=== PATIENT | female | born 1960 | race Caucasian/White ===

== ENCOUNTER 2023-05-14 13:44 | Emergency (ER) | payer MEDICAID, SELFPAY ==
[2023-05-14 13:51] VITALS: BP 100/63; PULSE 85; RESP 20; TEMP 36.6; O2SAT 94; BMI 49.9
--- NOTE | 2023-05-14 13:58 | XR_ITS ---
The [address] [address] Patient Name: RANGEL SANTAMARIA MRN: [id number] date: 1960 Sex: F Assigned Patient Location: ER Current Patient Location: ER Accession/Order Number: [id number] Exam Date: 05/14/2023 14:00 Report Date: 05/14/2023 14:11 At the request of: MARK WELLER Procedure: XR chest 1V EXAM: XR chest 1V HISTORY: Cough COMPARISON: None. TECHNIQUE: AP portable FINDINGS: LUNGS: No significant pulmonary parenchymal abnormalities. VASCULATURE: No increased pulmonary vasculature. PLEURA: No pneumothorax, effusion, or pleural thickening. CARDIAC: No cardiomegaly or cardiac silhouette abnormality. MEDIASTINUM: No visible mass or adenopathy. BONES: No fracture or visible bone lesion. OTHER: Negative. XR/XR chest 1V IMPRESSION: No acute cardiopulmonary process Electronically authenticated by: SHMUEL AC Date: 05/14/2023 14:11
--- NOTE | 2023-05-14 14:00 | ED.WEAKNESS1 ---
HPI - Weakness General Chief complaint: Weakness Stated complaint: general weakness Time Seen by Provider: 05/14/23 13:45 Source: patient Mode of arrival: ambulance Limitations: no limitations History of Present Illness HPI Narrative: Patient is a 63-year-old female full code from [place] who presents to the emergency department by ambulance after she was found to be drowsy with low pulse oximetry and had episodes of diarrhea. Patient states she did not want to come to the emergency department and was forced to do so, she states because she was a full code she was told she could not refuse. She is alert and oriented to person, place, time at time of my evaluation. She denies chest pain or shortness of breath. She is a half a pack per day cigarette smoker. She is drowsy but answers all questions appropriately. She has no significant focal medical complaints at my time of evaluation. She has a longstanding history of COPD and states she uses breathing treatments and albuterol inhalers. Related Data Home Medications Medication Instructions Recorded Confirmed albuterol sulfate 2.5 mg/3 mL 2.5 mg continuous nebulization Q4H 05/14/23 05/14/23 (0.083 %) solution for nebulization PRN shortness of breath or wheezing albuterol sulfate 90 mcg/actuation 2 puff inhalation Q6H PRN 05/14/23 05/14/23 aerosol inhaler shortness of breath or wheezing aripiprazole 5 mg tablet 5 mg PO DAILY 05/14/23 05/14/23 atorvastatin 40 mg tablet 40 mg PO DAILY 05/14/23 05/14/23 clonidine HCl 0.1 mg tablet 0.1 mg PO BID 05/14/23 05/14/23 clopidogrel 75 mg tablet 75 mg PO DAILY 05/14/23 05/14/23 cyclobenzaprine 10 mg tablet 10 mg PO TID 05/14/23 05/14/23 Previous Rx's Medication Instructions Recorded azithromycin 250 mg tablet See Rx Instructions PO .COMPLEX #6 05/14/23 (Zithromax Z-Gideon) tabs methylprednisolone 4 mg tablets in See Rx Instructions .Route 05/14/23 a dose pack (Medrol (Gideon)) .COMPLEX #21 ea Allergies Allergy/AdvReac Type Severity Reaction Status Date / Time aspirin Allergy Severe Unverified 05/14/23 13:51 dextrose Allergy Unknown Verified 05/14/23 13:51 Penicillins Allergy Unknown Verified 05/14/23 13:51 iv contrast Allergy Unknown Uncoded 05/14/23 13:51 Review of Systems ROS Constitutional Denies: fever or chills Ears, nose, mouth, and throat Denies: throat pain or nasal congestion Cardiovascular Denies: chest pain Respiratory Reports: cough and wheezing; Denies: shortness of breath Gastrointestinal Reports: diarrhea; Denies: nausea or vomiting Genitourinary Denies: painful urination Musculoskeletal Denies: back pain or neck pain Integumentary/Breast Denies: rash Neurological Reports: headache PFSH PFS Social History Smoking status: Heavy tobacco smoker Exam Narrative Exam Narrative: Gen.: Awake, alert, in no distress Head: Normocephalic, atraumatic ENT: Moist mucous membranes Respiratory: No respiratory distress, Inspiratory and expiratory wheezing globally Cardio: Regular rate and rhythm Gastrointestinal: Abdomen is soft, nondistended and nontender to palpation Extremities: Moves extremities equally Psych: Normal mood and affect Neuro: No focal neuro deficit Skin: Warm, dry, intact Constitutional Vital Signs, click to edit/add: Last Vital Signs Temp 97.8 F 05/14/23 13:51 Pulse 84 05/14/23 16:13 Resp 24 05/14/23 15:23 BP 106/63 05/14/23 16:13 Pulse Ox 93 L 05/14/23 16:13 O2 Del Method Room Air 05/14/23 15:23 Course Vital Signs Vital signs: Vital Signs Temperature 97.8 F 05/14/23 13:51 Pulse Rate 85 05/14/23 13:51 Respiratory Rate 20 05/14/23 13:51 Blood Pressure 100/63 05/14/23 13:51 Pulse Oximetry 94 L 05/14/23 13:51 Oxygen Delivery Method Room Air 05/14/23 13:51 Temperature 97.8 F 05/14/23 13:51 Pulse Rate 84 05/14/23 16:13 Respiratory Rate 24 05/14/23 15:23 Blood Pressure 106/63 05/14/23 16:13 Pulse Oximetry 93 L 05/14/23 16:13 Oxygen Delivery Method Room Air 05/14/23 15:23 MDM - Weakness MDM Narrative Medical decision making narrative: Patient adamantly refuses IV start, EKG or extensive workup. She is agreeable to blood work and a chest x-ray as well as breathing treatments. I made her aware that with limited evaluation and no IV placement, we could not rule out certain medical conditions that may be giving her hypoxia like pulmonary embolism, severe sepsis. She verbalizes understanding. She states she did not want to come to the emergency department and does not want to be here. She will allow us to draw labs and get a chest x-ray. Chest x-ray is unremarkable, lab studies with no significant acute abnormalities. Patient did maintain oxygen saturation above 92% in the ER, she was given breathing treatments with improvement. She was reevaluated by attending physician, she continues to refuse additional evaluation for PE, sepsis, IV start. She is alert and oriented x 3. She appears to have a COPD exacerbation at this time. She will be started on a Z-Gideon and prednisone. She has albuterol breathing treatments and inhalers at her facility. The nurse who called report stated that the patient was recently given an order for oxygen by nasal cannula. Return to the ER if symptoms change or worsen Medical Records Attestation: I reviewed the patient's medical records. Lab Data Attestation: I reviewed the patient's lab results. Labs: Lab Results 05/14/23 Range/Units 14:14 WBC 7.8 (4.0-11.0) 10^3/uL RBC 4.44 (4.20-5.40) 10^6/uL Hgb 13.2 (12.0-16.0) g/dL Hct 41.1 (36.0-48.0) % MCV 92.6 (81.0-99.0) fL MCH 29.7 (26.7-34.0) pg MCHC 32.1 (29.9-35.2) g/dL RDW 14.9 (11.0-15.0) % Plt Count 224 (150-450) 10^3/uL MPV 9.9 (9.5-13.5) fL Neut % (Auto) 47.9 (43.0-75.0) % Lymph % (Auto) 37.6 (20.5-60.0) % [place] % (Auto) 9.5 (1.7-12.0) % Eos % (Auto) 1.4 (0.9-7.0) % Baso % (Auto) 0.9 (0.2-2.0) % Neut # (Auto) 3.8 (1.4-6.5) 10^3/uL Lymph # (Auto) 2.9 (1.2-3.8) 10^3/uL [place] # (Auto) 0.7 (0.3-0.8) 10^3/uL Eos # (Auto) 0.1 (0.0-0.7) 10^3/uL Baso # (Auto) 0.1 (0.0-0.1) 10^3/uL Abs Immat Gran (auto) 0.21 H (0.00-0.03) 10^3/uL Imm/Tot Granulo (auto) 2.7 H (0.0-0.5) % PT 11.1 (9.0-11.6) sec INR 1.05 VBG pH 7.457 H (7.330-7.430) VBG pCO2 42.9 (40.0-52.0) mmHg Sodium 137 (136-145) mmol/L Potassium 3.6 (3.5-5.1) mmol/L Chloride 98 (98-107) mmol/L Carbon Dioxide 34.0 H (21.0-32.0) mmol/L Anion Gap 8.6 BUN 55.0 H (7.0-18.0) mg/dL Creatinine 1.53 H (0.55-1.02) mg/dL Est GFR ( Amer) 42 L (>=60) Est GFR (Non-Af Amer) 34 L (>=60) BUN/Creatinine Ratio 35.9 Glucose 155 H (74-106) mg/dL Lactate 1.8 (0.4-2.0) mmol/L Calcium 9.0 (8.5-10.1) mg/dL Magnesium 1.8 (1.8-2.4) mg/dL Total Bilirubin 0.2 (0.2-1.0) mg/dL AST 11 L (15-37) U/L ALT 16 (14-59) U/L Alkaline Phosphatase 103 (46-116) U/L Troponin I High Sens 7.5 (4.0-51.3) pg/mL NT-Pro-B Natriuret Pep 278.0 (<=900.0) pg/mL Total Protein 7.7 (6.4-8.2) g/dL Albumin 2.5 L (3.4-5.0) g/dL Globulin 5.2 g/dL Albumin/Globulin Ratio 0.5 Imaging Data Chest x-ray: Attestation: I have reviewed the pertinent imaging results. Radiologist's impression: ITS Impressions Chest X-Ray 05/14/23 13:58 IMPRESSION: No acute cardiopulmonary process Electronically authenticated by: SHMUEL AC Date: 05/14/2023 14:11 Discharge Plan Discharge Chief Complaint: Weakness Clinical Impression: COPD exacerbation Patient Disposition: Home, Self-Care Time of Disposition Decision: 16:08 Condition: Good Prescriptions / Home Meds: New azithromycin [Zithromax Z-Gideon] 250 mg tablet See Rx Instructions .ROUTE .COMPLEX Qty: 6 0RF Rx Instructions: For 250 mg dose pack: take 500 mg today (day 1), then 250 mg for 4 days (days 2-5) methylprednisolone [Medrol (Gideon)] 4 mg tablets,dose pack See Rx Instructions .ROUTE .COMPLEX Qty: 21 0RF Rx Instructions: Taper as directed No Action albuterol sulfate 90 mcg/actuation HFA aerosol inhaler 2 puff INHALATION Q6H PRN (Reason: shortness of breath or wheezing) albuterol sulfate 2.5 mg /3 mL (0.083 %) solution for nebulization 2.5 mg continuous nebulization Q4H PRN (Reason: shortness of breath or wheezing) aripiprazole 5 mg tablet 5 mg PO DAILY atorvastatin 40 mg tablet 40 mg PO DAILY clonidine HCl 0.1 mg tablet 0.1 mg PO BID clopidogrel 75 mg tablet 75 mg PO DAILY cyclobenzaprine 10 mg tablet 10 mg PO TID Instructions: COPD (Chronic Obstructive Pulmonary Disease) (ED) Stand Alone Forms: Portal Instructions Referrals: [facility] [Primary Care Provider] - 1 week
[2023-05-14 14:24] LABS: pH VBG 7.457 (7.330-7.430)
[2023-05-14 14:25] LABS: PCO2 VBG 42.9 mmHg (40.0-52.0)
[2023-05-14 14:26] LABS: Basophils Absolute Auto 0.1 10^3/uL (0.0-0.1); Basophils Percent Auto 0.9 % (0.2-2.0); Eosinophils Absolute Auto 0.1 10^3/uL (0.0-0.7); Eosinophils Percent Auto 1.4 % (0.9-7.0); Hematocrit 41.1 % (36.0-48.0); Hemoglobin 13.2 g/dL (12.0-16.0); Immature Granulocytes Abs Auto 0.21 10^3/uL (0.00-0.03); Immature Granulocytes Pct Auto 2.7 % (0.0-0.5); Lymphocytes Absolute Auto 2.9 10^3/uL (1.2-3.8); Lymphocytes Percent Auto 37.6 % (20.5-60.0); Mean Corpuscular HGB Conc 32.1 g/dL (29.9-35.2); Mean Corpuscular Hemoglobin 29.7 pg (26.7-34.0); Mean Corpuscular Volume 92.6 fL (81.0-99.0); Mean Platelet Volume 9.9 fL (9.5-13.5); Monocytes Absolute Auto 0.7 10^3/uL (0.3-0.8); Monocytes Percent Auto 9.5 % (1.7-12.0); Neutrophils Absolute Auto 3.8 10^3/uL (1.4-6.5); Neutrophils Percent Auto 47.9 % (43.0-75.0); Platelet Count 224 10^3/uL (150-450); Red Blood Count 4.44 10^6/uL (4.20-5.40); Red Cell Distribution Width 14.9 % (11.0-15.0); White Blood Count 7.8 10^3/uL (4.0-11.0)
[2023-05-14 14:38] LABS: INR 1.05; Prothrombin Time 11.1 sec (9.0-11.6)
[2023-05-14 14:42] LABS: Lactate/Lactic Acid 1.8 mmol/L (0.4-2.0)
[2023-05-14 14:49] LABS: Alanine Aminotransferase 16 U/L (14-59); Albumin Globulin Ratio 0.5; Albumin Level 2.5 g/dL (3.4-5.0); Alkaline Phosphatase 103 U/L (46-116); Anion Gap 8.6; Aspartate Amino Transferase 11 U/L (15-37); BUN Creatinine Ratio 35.9; Bilirubin Total 0.2 mg/dL (0.2-1.0); Chloride 98 mmol/L (98-107); Estimated GFR (African America 42 (>=60); Estimated GFR (Non-African Ame 34 (>=60); Globulin 5.2 g/dL; Glucose 155 mg/dL (74-106); Magnesium 1.8 mg/dL (1.8-2.4); Potassium 3.6 mmol/L (3.5-5.1); Sodium 137 mmol/L (136-145); Total Protein 7.7 g/dL (6.4-8.2); Troponin I High Sensitivity 7.5 pg/mL (4.0-51.3)
[2023-05-14] MEDS: ALBUTEROL SULFATE 2.5 MG/3 ML VIAL NEB IH (15:22)
[2023-05-14] MEDS: IPRATROPIUM/ALBUTEROL SULFATE 3 ML AMPUL.NEB IH (15:22)
[2023-05-14 15:23] VITALS: BP 112/58; PULSE 82; PULSE 90; RESP 24; O2SAT 92
[2023-05-14 16:13] VITALS: BP 106/63; PULSE 84; O2SAT 93
[2023-05-14 16:58] VITALS: O2SAT 92
[2023-05-14 17:09] VITALS: BP 118/68; PULSE 85; O2SAT 93
[2023-05-14 17:35] VITALS: O2SAT 92
== END 2023-05-14 17:48 | disposition home or self-care (01) ==
PROVIDERS: Physician Assistant; Emergency Provider Emergency Medicine
DX: J44.1 Chronic obstructive pulmonary disease with (acute) exacerbation (principal); F17.210 Nicotine dependence, cigarettes, uncomplicated; Z79.899 Other long term (current) drug therapy
CPT/HCPCS: 0202U; 36415; 71045; 80053; 80307; 82800; 82805; 83605; 83735; 83880; 84484; 85025; 85610; 87040; 94640; 99284

== ENCOUNTER 2023-06-09 17:04 | Inpatient (IN) | payer MEDICAID, SELFPAY ==
[2023-06-09 17:03] VITALS: BP 115/64; PULSE 83; RESP 18; TEMP 36.9; O2SAT 100; BMI 47.0
--- NOTE | 2023-06-09 17:21 | XR_ITS ---
The [address] [address] Patient Name: RANGEL SANTAMARIA MRN: [id number] date: 1960 Sex: F Assigned Patient Location: ER Current Patient Location: .[facility] Accession/Order Number: [id number] Exam Date: 06/09/2023 17:35 Report Date: 06/09/2023 18:11 At the request of: MARK WELLER Procedure: XR foot RT min 3V IMAGES REVIEWED: XR foot RT min 3V COMPARISON: None available. CLINICAL INDICATION: osteomyelitis FINDINGS/IMPRESSION: Fifth toe soft tissue ulcer and soft tissue swelling suggesting cellulitis. No definite radiographic evidence of osteomyelitis or acute osseous abnormality at this time. MRI would be more sensitive. 15 mm metallic retained foreign body in the forefoot soft tissues projecting between the second and third proximal phalanges on the first view. Prominent ankle and dorsal foot soft tissue swelling. Peripheral arterial disease. Status post prior fusion of the medial foot with a screw extending from the first metatarsal head through the first CMC joint, navicular-cuneiform joint, talonavicular joint, possibly to correct hindfoot valgus. Slight focal periprosthetic lucency in the region of the first metatarsal head articular surface, questionably suggesting loosening. Status post prior subtalar fusion. Moderate calcaneal enthesopathy. Pes planus. Moderate-severe degenerative change of the tibiotalar joint and midfoot. Mild-moderate degenerative change first MTP joint. Osteopenia. Electronically authenticated by: MAGNO FERNANDEZ Date: 06/09/2023 18:11
--- NOTE | 2023-06-09 17:21 | ED.GENADUL1 ---
HPI - General Adult General Chief complaint: Skin/Abscess/Foreign Body Stated complaint: WOUND CHECK Time Seen by Provider: 06/09/23 17:10 Source: patient Mode of arrival: ambulance Limitations: no limitations History of Present Illness HPI narrative: Is a 63-year-old female who presents to the emergency department for the evaluation of necrotic right fifth toe. She has a history of diabetes. She states that she had previous surgery with hardware placed in the right foot years ago. She has had no other additional surgeries on the foot. She is morbidly obese, she states for the last month she has had necrotic tissue and infection to the right fifth toe. Apparently a movement education specialist evaluated [facility] and it was recommended she come to the ER. She denies fevers, vomiting. No medications prior to arrival. She was on Antibiotics several weeks ago for an unrelated issue. Related Data Home Medications Medication Instructions Recorded Confirmed albuterol sulfate 2.5 mg/3 mL 2.5 mg continuous nebulization Q4H 05/14/23 05/14/23 (0.083 %) solution for nebulization PRN shortness of breath or wheezing albuterol sulfate 90 mcg/actuation 2 puff inhalation Q6H PRN 05/14/23 05/14/23 aerosol inhaler shortness of breath or wheezing aripiprazole 5 mg tablet 10 mg PO DAILY 05/14/23 06/09/23 atorvastatin 40 mg tablet 40 mg PO DAILY 05/14/23 05/14/23 clonidine HCl 0.1 mg tablet 0.1 mg PO BID 05/14/23 05/14/23 clopidogrel 75 mg tablet 75 mg PO DAILY 05/14/23 05/14/23 cyclobenzaprine 10 mg tablet 10 mg PO TID 05/14/23 05/14/23 Previous Rx's Medication Instructions Recorded azithromycin 250 mg tablet See Rx Instructions PO .COMPLEX #6 05/14/23 (Zithromax Z-Gideon) tabs methylprednisolone 4 mg tablets in See Rx Instructions .Route 05/14/23 a dose pack (Medrol (Gideon)) .COMPLEX #21 ea Allergies Allergy/AdvReac Type Severity Reaction Status Date / Time aspirin Allergy Severe Verified 06/09/23 17:53 dextrose Allergy Unknown Verified 06/09/23 17:53 Penicillins Allergy Unknown Verified 06/09/23 17:53 iv contrast Allergy Unknown Uncoded 06/09/23 17:53 Review of Systems ROS Constitutional Denies: fever or chills Ears, nose, mouth, and throat Denies: throat pain Cardiovascular Denies: chest pain Respiratory Denies: shortness of breath or cough Gastrointestinal Denies: nausea or vomiting Musculoskeletal Denies: back pain or neck pain Integumentary/Breast Denies: rash Neurological Denies: headache Hematologic/Lymphatic Denies: easy bruising or easy bleeding PFSH PFSH Social History Smoking status: Former smoker Exam Narrative Exam Narrative: Gen.: Awake, alert, in no distress; Morbidly obese female in no distress Head: Normocephalic, atraumatic ENT: Moist mucous membranes Respiratory: No respiratory distress, lungs clear bilaterally Cardio: Regular rate and rhythm Extremities: Moves extremities equally, Right fifth toe with diffuse necrosis, inflammation and open exposed areas of the skin, diffusely swollen with no significant cellulitis extending to the foot. Psych: Normal mood and affect Neuro: No focal neuro deficit Skin: Warm, dry, intact Constitutional Vital Signs, click to edit/add: Last Vital Signs Temp 98.5 F 06/09/23 17:03 Pulse 83 06/09/23 17:03 Resp 18 06/09/23 17:03 BP 115/64 06/09/23 17:03 Pulse Ox 100 06/09/23 17:03 O2 Del Method Room Air 06/09/23 17:03 Course Vital Signs Vital signs: Vital Signs Temperature 98.5 F 06/09/23 17:03 Pulse Rate 83 06/09/23 17:03 Respiratory Rate 18 06/09/23 17:03 Blood Pressure 115/64 06/09/23 17:03 Pulse Oximetry 100 06/09/23 17:03 Oxygen Delivery Method Room Air 06/09/23 17:03 Temperature 98.5 F 06/09/23 17:03 Pulse Rate 83 06/09/23 17:03 Respiratory Rate 18 06/09/23 17:03 Blood Pressure 115/64 06/09/23 17:03 Pulse Oximetry 100 06/09/23 17:03 Oxygen Delivery Method Room Air 06/09/23 17:03 Medical Decision Making MDM Narrative Medical decision making narrative: X-rays obtained, IV established and labs drawn with elevated CRP, sed rate. White blood cell count, lactic acid are normal. Patient treated with IV Levaquin and vancomycin due to penicillin allergy. Discussed with Dr. Gregorio, he will see the patient as a consult. She will be admitted to hospitalist service with podiatry consult for probable debridement of the right fifth toe. Medical Records Medical records reviewed: Yes I reviewed the patient's medical records Lab Data Lab results reviewed: Yes I reviewed the patient's lab results Labs: Lab Results 06/09/23 Range/Units 17:20 WBC 8.3 (4.0-11.0) 10^3/uL RBC 3.80 L (4.20-5.40) 10^6/uL Hgb 11.4 L (12.0-16.0) g/dL Hct 35.9 L (36.0-48.0) % MCV 94.5 (81.0-99.0) fL MCH 30.0 (26.7-34.0) pg MCHC 31.8 (29.9-35.2) g/dL RDW 15.2 H (11.0-15.0) % Plt Count 228 (150-450) 10^3/uL MPV 9.9 (9.5-13.5) fL Neut % (Auto) 49.0 (43.0-75.0) % Lymph % (Auto) 35.5 (20.5-60.0) % Glenn % (Auto) 7.0 (1.7-12.0) % Eos % (Auto) 3.6 (0.9-7.0) % Baso % (Auto) 0.7 (0.2-2.0) % Neut # (Auto) 4.1 (1.4-6.5) 10^3/uL Lymph # (Auto) 2.9 (1.2-3.8) 10^3/uL Glenn # (Auto) 0.6 (0.3-0.8) 10^3/uL Eos # (Auto) 0.3 (0.0-0.7) 10^3/uL Baso # (Auto) 0.1 (0.0-0.1) 10^3/uL Abs Immat Gran (auto) 0.35 H (0.00-0.03) 10^3/uL Imm/Tot Granulo (auto) 4.2 H (0.0-0.5) % ESR 106 H (<=30) mm/hr Sodium 140 (136-145) mmol/L Potassium 3.7 (3.5-5.1) mmol/L Chloride 103 (98-107) mmol/L Carbon Dioxide 32.3 H (21.0-32.0) mmol/L Anion Gap 8.4 BUN 51.0 H (7.0-18.0) mg/dL Creatinine 1.17 H (0.55-1.02) mg/dL Est GFR ( Amer) 57 L (>=60) Est GFR (Non-Af Amer) 47 L (>=60) BUN/Creatinine Ratio 43.6 Glucose 179 H (74-106) mg/dL Lactate 1.1 (0.4-2.0) mmol/L Calcium 8.8 (8.5-10.1) mg/dL Total Bilirubin 0.2 (0.2-1.0) mg/dL AST 11 L (15-37) U/L ALT 13 L (14-59) U/L Alkaline Phosphatase 82 (46-116) U/L C-Reactive Protein 2.00 H (<=0.50) mg/dL Total Protein 7.3 (6.4-8.2) g/dL Albumin 2.3 L (3.4-5.0) g/dL Globulin 5.0 g/dL Albumin/Globulin Ratio 0.5 Imaging Data XR foot: Attestation: I have reviewed the pertinent imaging results. Discharge Plan Discharge Chief Complaint: Skin/Abscess/Foreign Body Clinical Impression: Toe necrosis Time of Disposition Decision: 17:56
--- OUTSIDE RECORDS SUMMARY | 2023-06-09 17:21 | XMS_ITS | CCD ---
Author Name Unknown Address [address] [facility] [address] [place], [place] [id number] Organization [facility] Care Team Providers Care Inclusion Internship Name Role Phone Unavailable Primary Care Provider Unavailabl e Problems Problem Classification Problem Date Documented Da te Episodic/Chronic Acute myocardial infarction (5 sources) Myocardial infarction; Translations: [Acute myocardial infarction, unspecified] Onset: 04-26-2023 04-26-2023 Chronic Anxiety disorders (6 sources) Anxiety disorder; Translations: [Anxiety disorder, unspecified] Onset: 04-26-2023 04-26-2023 Chronic Chronic kidney disease (6 sources) Chronic kidney disease; Translations: [Chronic kidney disease, unspecified] Onset: 04-26-2023 04-26-2023 Chronic Chronic obstructive pulmonary disease and bronchiectasis (7 sources) Chronic obstructive lung disease; Translations: [Chronic obstructive pulmonary disease, unspecified] Onset: 04-26-2023 04-26-2023 Chronic Congestive heart failure; nonhypertensive (7 sources) Acute on chronic diastolic heart failure; Translations: [Acute on chronic diastolic (congestive) heart failure] Onset: 04-26-2023 04-26-2023 Chronic Coronary atherosclerosis and other heart disease (12 sources) Coronary arteriosclerosis; Translations: [Atherosclerotic heart disease of [place] coronary artery without angina pectoris] Onset: 04-26-2023 04-26-2023 Chronic Diabetes mellitus with complications (6 sources) Polyneuropathy due to type 2 diabetes mellitus; Translations: [Type 2 diabetes mellitus with diabetic polyneuropathy] Onset: 04-26-2023 04-26-2023 Chronic Disorders of lipid metabolism (6 sources) Hyperlipidemia; Translations: [Hyperlipidemia, unspecified] Onset: 04-26-2023 04-26-2023 Chronic Epilepsy; convulsions (6 sources) Seizure; Translations: [Other seizures] Onset: 04-26-2023 04-26-2023 Chronic Essential hypertension (6 sources) Benign essential hypertension; Translations: [Essential (primary) hypertension] Onset: 04-26-2023 04-26-2023 Chronic Mood disorders (10 sources) Depressive disorder; Translations: [Depressive disorder] Onset: 04-26-2023 04-26-2023 Chronic Open wounds of extremities (7 sources) Open wound of lesser toe of left foot; Translations: [Unspecified open wound of left lesser toe(s) without damage to nail, subsequent encounter] Onset: 04-26-2023 04-26-2023 Episodic Other circulatory disease (6 sources) H/O: atrial fibrillation; Translations: [Personal history of other diseases of the circulatory system] Onset: 04-26-2023 04-26-2023 Episodic Other connective tissue disease (8 sources) Muscle weakness; Translations: [Muscle weakness (generalized)] Onset: 04-26-2023 04-26-2023 Episodic Other ear and sense organ disorders (1 source) Excessive cerumen in ear canal ; Translations: [Impacted cerumen, left ear] 05-05-2023 Episodic Other gastrointestinal disorders (1 source) Diarrhea; Translations: [Diarrhea, unspecified] 04-26-2023 Episodic Other nervous system disorders (1 source) Chronic pain; Translations: [Other chronic pain] 04-26-2023 Chronic Other nervous system disorders (9 sources) Finding related to ability to move; Translations: [Other abnormalities of gait and mobility] Onset: 04-26-2023 04-26-2023 Episodic Other nutritional; endocrine; and metabolic disorders (6 sources) Morbid obesity; Translations: [Morbid (severe) obesity due to excess calories] Onset: 04-26-2023 04-26-2023 Chronic Pulmonary heart disease (6 sources) Idiopathic pulmonary arterial hypertension ; Translations: [Primary pulmonary hypertension] Onset: 04-26-2023 04-26-2023 Chronic Residual codes; unclassified (6 sources) Noncompliance with treatment; Translations: [Patient's noncompliance with other medical treatment and regimen due to unspecified reason] Onset: 04-26-2023 04-26-2023 Episodic Spondylosis; intervertebral disc disorders; other back problems (9 sources) Chronic low back pain; Translations: [Chronic low back pain without sciatica] Onset: 04-29-2023 04-29-2023 Episodic Substance-related disorders (7 sources) Cigarette smoker ; Translations: [Nicotine dependence, cigarettes, uncomplicated] Onset: 04-26-2023 04-26-2023 Chronic Vital Signs Date Time Vital Sign Value Performing Clinician Facility 05-05-2023 22:06-0500 Body temperature 97.59 [degF] Carlin Furlong DO Work Phone: [facility] [employer] 05-05-2023 22:06-0500 Body weight 179.44 kg Carlin Furlong DO Work Phone: [facility] [employer] [facility] 05-05-2023 22:06-0500 Diastolic blood pressure 74 mm[Hg] Carlin Furlong DO Work Phone: [facility] [employer] [facility] 05-05-2023 22:06-0500 Heart rate 88 /min Carlin Furlong DO Work Phone: [facility] [employer] [facility] 05-05-2023 22:06-0500 Respiratory rate 18 /min [facility] 22:06-0500 SaO2% (BldA) [Mass fraction] 95 % [facility]-05-2023 22:06-0500 Systolic blood pressure 136 mm[Hg] Carlin Furlong DO Work Phone: [facility] [employer] [facility] 04-29-2023 16:46-0500 Diastolic blood pressure 61 mm[Hg] [facility] 04-29-2023 16:46-0500 Heart rate 70 /min Carlin Furlong DO Work Phone: [facility] [employer] 04-29-2023 16:46-0500 Systolic blood pressure 127 mm[Hg] Carlin Furlong DO Work Phone: [facility] [employer] [facility] 04-26-2023 17:11-0500 Body temperature 97.2 [degF] Carlin Furlong DO Work Phone: [facility] [employer] [facility] 04-26-2023 17:11-0500 Body weight 117.48 kg Carlin Furlong DO Work Phone: [facility] [employer] [facility] 04-26-2023 17:11-0500 Diastolic blood pressure 72 mm[Hg] Carlin Furlong DO Work Phone: [facility] 04-26-2023 17:11-0500 Heart rate 91 /min Carlin Furlong DO Work Phone: [facility] [employer] [facility] 04-26-2023 17:11-0500 Respiratory rate 20 /min Carlin Furlong DO Work Phone: [facility] 04-26-2023 17:11-0500 SaO2% (BldA) [Mass fraction] 97 % Carlin Furlong DO Work Phone: [facility] 04-26-2023 17:11-0500 Systolic blood pressure 129 mm[Hg] Carlin Furlong DO Work Phone: [facility] 04-26-2023 16:10-0500 Body temperature 98.1 [degF] Carlin Furlong DO Work Phone: [facility] [employer] [facility] 04-26-2023 16:10-0500 Diastolic blood pressure 70 mm[Hg] Carlin Furlong DO Work Phone: [facility] 04-26-2023 16:10-0500 Heart rate 86 /min Carlin Furlong DO Work Phone: [facility] 04-26-2023 16:10-0500 Respiratory rate 18 /min Carlin Furlong DO Work Phone: [facility] 04-26-2023 16:10-0500 SaO2% (BldA) [Mass fraction] 97 % Carlin Furlong DO Work Phone: [facility] 04-26-2023 16:10-0500 Systolic blood pressure 122 mm[Hg] Carlin Borrego DO Work Phone: [facility] Encounters Encounter Date Encounter Type Care Provider Facility Start: 05-05-2023 ambulatory Carlin villasenor DO Work Phone: [facility] Comment on above: Excessive cerumen in left ear canal (Primary Dx); Other abnormalities of gait and mobility; Muscle weakness (generalized); Multilevel degenerative disc disease Start: 04-29-2023 Orders Only Carlin villasenor DO Work Phone: [facility] Start: 04-28-2023 ambulatory Carlin villasenor DO Work Phone: [facility] Comment on above: Acute on chronic miya stolic heart failure ([facility]) (Primary Dx); Chronic obstructive pulmonary disease, unspecified COPD type ([facility]); Other abnormalities of gait and mobility; Chronic neck pain; Chronic low back pain without sciatica, unspecified back pain laterality Start: 04-21-2023 ambulatory Carlin villasenor DO Work Phone: [facility] Comment on above: Diarrhea, unspecifie d type (Primary Dx); Cigarette smoker; Open wound of lesser toe of left foot without damage to nail, subsequent encounter; Other abnormalities of gait and mobility; Muscle weakness (generalized) Start: 04-14-2023 Continuing Care Carlin villasenor DO Work Phone: [facility] Comment on above: Coronary artery dise ase involving [place] heart without angina pectoris, unspecified vessel or lesion type (Primary Dx); Diabetic polyneuropathy associated with type 2 diabetes mellitus ([facility]); Chronic kidney disease, unspecified CKD stage; Essential hypertension, benign; Primary pulmonary hypertension ([facility]); Chronic obstructive pulmonary disease, unspecified COPD type ([facility]); Patient's noncompliance with other medical treatment and regimen due to unspecified reason; Other seizures ([facility]); Hyperlipidemia, unspecified hyperlipidemia type; Morbid obesity ([facility]); Depressive disorder; Anxiety disorder, unspecified type; Cigarette smoker; Open wound of lesser toe of left foot without damage to nail, subsequent encounter; Acute on chronic diastolic heart failure ([facility]); Other abnormalities of gait and mobility; Muscle weakness (generalized); History of UT (myocardial infarction); History of atrial fibrillation; Other chronic pain Plan of Treatment Date Care Activity Detail Author Start: 10-13-2024 Tobacco Counseling Tobacco Counseling [facility] Start: 12-26-2022 Influenza vaccination Influenza Vaccine [facility] Start: 2011 Administration of varicella zoster vaccine Zoster (Shingles) Vaccine (1 of 2) [facility] Start: 1982 Screening for malignant neoplasm of cervix Pap Smear [facility] Start: 1980 DTaP,Tdap and Td Vaccines (1 - Tdap) DTaP,Tdap and Td Vaccines (1 - Tdap) [facility] Start: 1979 Adult BMI Screening Adult BMI Screening [facility] Start: 1979 Diabetic foot examination Diabetic Foot Exam [facility] Start: 1973 Depression Screening Depression Screening [facility] Start: 1973 Tobacco Screening Tobacco Screening [facility] Start: 1960 Glaucoma screening Diabetic Ophthalmology Exam [facility] Social History Date Type Detail Facility Start: 04-26-2023 Tobacco smoking stat [facility] Smokes tobacco daily [facility] History of tobacco use Cigarette Smoker P [facility] Start: 04-26-2023 End: 05-05-2023 Cigarettes smoked current (pack per day) - Reported 0.3 [facility] Start: 04-26-2023 Tobacco use and exposure Smokeless tobacco non-user [facility] Start: 04-26-2023 End: 05-05-2023 Alcohol intake Current drinker of alcohol (finding) [facility] Start: 04-26-2023 End: 05-05-2023 Tobacco use panel [facility] Start: 1960 Sex Assigned At Not on file P [facility] Tobacco smoking stat [facility] Tobacco smoking consumption unknown [facility] Clinical Notes 04-14-2023 to 05-05-2023 Carlin Borrego, DO - 05/05/2023 10:06 PM Deepti Borrego, DO - 04/29/2023 4:33 PM Deepti Borrego, DO - 04/28/2023 11:59 PM Deepti Borrego, DO - 04/21/2023 11:59 PM EST Note Date & Type Note Facility 05-05-2023 History of Present illness Narrative Patient Name: Linda Sullivan Date of : 1960 Date of Service: 05/05/2023 Facility: [facility] Type of Visit: Skilled Visit Subjective Linda Sullivan is a 63 y.o. female seen today at [facility] facility for therapy visit. Laurie is in therapy but will be discharged soon. She wanted to see me because she hasn't had any ear drops. I ordered them last week. Her ear feels plugged. She requires max encouragement to participate. She refuses to ambulate. She is hoping to get into a long term center in [facility]. Her x-rays showed moderate degenerative disc disease. No fractures. Allergies: Patient has no allergy information on record. Code Status: FULL CODE BP 136/74 Pulse 88 Temp 36.4 C (97.6 F) Resp 18 Wt (!) 179.4 kg (395 lb 9.6 oz) SpO2 95% Physical Exam Vitals reviewed. Constitutional: Appearance: She is morbidly obese. HENT: Left Ear: There is impacted cerumen. Cardiovascular: Rate and Rhythm: Normal rate and regular rhythm. Pulses: Normal pulses. Heart sounds: Normal heart sounds. No murmur heard. Pulmonary: Effort: Pulmonary effort is normal. No respiratory distress. Breath sounds: Normal breath sounds. No wheezing, rhonchi or rales. Skin: Findings: Rash present. Comments: Eczematous rash on left ear Neurological: General: No focal deficit present. Mental Status: She is alert and oriented to person, place, and time. Psychiatric: Mood and Affect: Mood normal. Behavior: Behavior normal. Thought Content: Thought content normal. Judgment: Judgment normal. Summary / Assessment / Plan 1. Excessive cerumen in left ear canal 2. Other abnormalities of gait and mobility 3. Muscle weakness (generalized) 4. Multilevel degenerative disc disease Nurse was told to give her debrox. She has it ordered and was on cart. Decreased oxycodone-APAP to 7.5-325 Q8hrs prn with plan to continue to wean off medication especially if she leaves soon. All other medications reviewed and are medically necessary. ELECTRONICALLY SIGNED BY: Carlin Borrego DO documented in this encounter [facility] 04-29-2023 History of Present illness Narrative Addendum Will check x-ray of cervical and lumbar spine. Nurses report she is using oxycodone 10 mg about twice a day. Will decrease oxycodone-acetaminophen 7.5-325 1 Q8hrs prn pain. Attempted to check [facility] but they were having technical difficulties. Unable to retrieve report. documented in this encounter [facility] 04-28-2023 History of Present illness Narrative Patient Name: Linda Sullivan Date of : 1960 Date of Service: 04/28/2023 Facility: [facility] Type of Visit: Skilled Visit Subjective Linda Sullivan is a 63 y.o. female seen today at [facility] facility for therapy visit. Laurie is in therapy for increasing strength, endurance and functional mobility. She requires max encouragement for participation. She says she has chronic pain in her back-neck and low back mostly but also thoracic spine. She used to see Dr. Lu at [facility] but was dismissed because she missed an appointment. She came from the hospital on high dose prn oxycodone-10mg Q6hrs which was cut back to Q8 hrs and she is doing well on that. She has trouble hearing out of left ear. It feels plugged. She has had that in the past. She would like ear drops for that. Allergies: Patient has no allergy information on record. Code Status: FULL CODE BP 127/61 Pulse 70 Physical Exam Constitutional: General: She is sleeping. She is not in acute distress. Appearance: She is morbidly obese. She is not ill-appearing or toxic-appearing. HENT: Head: Normocephalic. Ears: Comments: No otoscope available to look into ear Eyes: General: No scleral icterus. Extraocular Movements: Extraocular movements intact. Conjunctiva/sclera: Conjunctivae normal. Cardiovascular: Rate and Rhythm: Normal rate and regular rhythm. Pulses: Normal pulses. Heart sounds: Normal heart sounds. No murmur heard. Pulmonary: Effort: Pulmonary effort is normal. No respiratory distress. Breath sounds: Normal breath sounds. No wheezing, rhonchi or rales. Abdominal: General: Bowel sounds are normal. Palpations: Abdomen is soft. There is no mass. Tenderness: There is no abdominal tenderness. There is no guarding or rebound. Musculoskeletal: Cervical back: Neck supple. Tenderness present. Lumbar back: Tenderness present. Lymphadenopathy: Cervical: No cervical adenopathy. Skin: General: Skin is warm. Neurological: General: No focal deficit present. Mental Status: She is oriented to person, place, and time and easily aroused. She is lethargic. Psychiatric: Mood and Affect: Mood normal. Behavior: Behavior normal. Thought Content: Thought content normal. Judgment: Judgment normal. Summary / Assessment / Plan 1. Acute on chronic diastolic heart failure (CMS-HCC) 2. Chronic obstructive pulmonary disease, unspecified COPD type (CMS-HCC) 3. Other abnormalities of gait and mobility 4. Chronic neck pain 5. Chronic low back pain without sciatica, unspecified back pain laterality Debrox ear drops 5 gtts BID x 7 days. [place] [facility] Continue therapy to reach MMI. Continue other medications as before. ELECTRONICALLY SIGNED BY: Carlin Borrego DO documented in this encounter [facility] 04-21-2023 History of Present illness Narrative Patient Name: Linda Sullivan Date of : 1960 Date of Service: 04/21/2023 Facility: [facility] Type of Visit: Skilled Visit Subjective Linda Sullivan is a 63 y.o. female seen today at [facility] facility for therapy visit. Staff and patient report diarrhea that started the day before. She was ordered immodium and that has helped. There was no blood seen. She says she has had a colonoscopy in the past few years but not sure exactly when it was. It was ok she said. She doesn't have a fever. She hasn't had any recent antibiotics. She has had only a couple of episodes of diarrhea. When she got here we ordered a nicotine patch but she wants to smoke so it was removed. She is not interested in quitting. She is in therapy. Allergies: Patient has no allergy information on record. Code Status: FULL CODE BP 129/72 Pulse 91 Temp 36.2 C (97.2 F) Resp 20 Wt 117.5 kg (259 lb) SpO2 97% Physical Exam Constitutional: General: She is not in acute distress. Appearance: She is morbidly obese. She is not ill-appearing or toxic-appearing. HENT: Head: Normocephalic. Eyes: General: No scleral icterus. Extraocular Movements: Extraocular movements intact. Conjunctiva/sclera: Conjunctivae normal. Cardiovascular: Rate and Rhythm: Normal rate and regular rhythm. Pulses: Normal pulses. Heart sounds: Normal heart sounds. No murmur heard. Pulmonary: Effort: Pulmonary effort is normal. No respiratory distress. Breath sounds: Normal breath sounds. No wheezing, rhonchi or rales. Abdominal: General: Bowel sounds are normal. Palpations: Abdomen is soft. There is no mass. Tenderness: There is no abdominal tenderness. There is no guarding or rebound. Musculoskeletal: Cervical back: Neck supple. Lymphadenopathy: Cervical: No cervical adenopathy. Skin: General: Skin is warm. Neurological: General: No focal deficit present. Mental Status: She is alert and oriented to person, place, and time. Psychiatric: Mood and Affect: Mood normal. Behavior: Behavior normal. Thought Content: Thought content normal. Judgment: Judgment normal. Summary / Assessment / Plan 1. Diarrhea, unspecified type 2. Cigarette smoker 3. Open wound of lesser toe of left foot without damage to nail, subsequent encounter 4. Other abnormalities of gait and mobility 5. Muscle weakness (generalized) Continue immodium prn for diarrhea. No worrisome symptoms at this time like blood or fever. Wound consult for wound on toe. Recommend smoking cessation. Increase risk of vascular disease, cancer and infection discussed. Continue therapy, other orders as directed. ELECTRONICALLY SIGNED BY: Carlin Borrego, DO documented in this encounter [facility] 04-14-2023 History of Present illness Narrative Patient Name: Linda Sullivan Date of : 1960 Date of Service: 04/26/2023 Facility: [facility] Type of Visit: Admission H&P Subjective Linda Sullivan is a 63 y.o. female seen today at [facility] facility for admission. Laurie presents to [facility] [place] [facility] [place] was admitted for hyperglycemia and chest pain rule out UT. She was in another facility last month and was discharged to home but did not have any pen needles so she wasn't giving herself any insulin for a week or so. She then presented to [facility] [place] and was admitted. It doesn't look like she had an UT at this last visit. She had an UT in 2015. She has a stent in 2016 and another in 2019 while living in [place]. She has chronic pain and takes oxycodone 10 mg Q6 hrs prn. She is vague with her pain generators. She says she aches all over. She smokes and has a chronic cough. She doesn't have a diagnosis of COPD in EMR but H&P from hospital mentions COPD. She is weak from recent hospitalization. She has poor endurance. She uses assistive devices for walk but doesn't have them here. She has a h/o sleep apnea but doesn't have a machine. She has 2 long acting insulins both at 60 units BID but doubt she is on both at the same time. She doesn't know what her last A1c was. She has an open wound on her left 5th toe. Allergies: Patient has no allergy information on record. Code Status: FULL CODE Review of Systems Constitutional: Negative. Eyes: Negative. Respiratory: Positive for cough. Negative for shortness of breath. Gastrointestinal: Negative. Endocrine: Negative. Genitourinary: Negative. Musculoskeletal: Positive for arthralgias, back pain and myalgias. Skin: Negative. Neurological: Positive for seizures (on medication) and weakness. Objective BP 122/70 Pulse 86 Temp 36.7 C (98.1 F) Resp 18 SpO2 97% Physical Exam Vitals reviewed. Constitutional: Appearance: She is morbidly obese. HENT: Head: Normocephalic and atraumatic. Eyes: General: Scleral icterus present. Extraocular Movements: Extraocular movements intact. Conjunctiva/sclera: Conjunctivae normal. Cardiovascular: Rate and Rhythm: Normal rate and regular rhythm. Pulses: Normal pulses. Heart sounds: Normal heart sounds. No murmur heard. Pulmonary: Effort: Pulmonary effort is normal. No respiratory distress. Breath sounds: Normal breath sounds. No stridor. No wheezing, rhonchi or rales. Abdominal: General: Bowel sounds are normal. Palpations: Abdomen is soft. Tenderness: There is no abdominal tenderness. Musculoskeletal: Cervical back: Neck supple. Right lower le+ Pitting Edema present. Left lower le+ Pitting Edema present. Comments: Trace to +1 b/l Lymphadenopathy: Cervical: No cervical adenopathy. Skin: Findings: Rash (chronic venous stasis dermatitis changes b/l LE's) present. Neurological: General: No focal deficit present. Mental Status: She is alert and oriented to person, place, and time. Cranial Nerves: No cranial nerve deficit. Psychiatric: Attention and Perception: Attention normal. Mood and Affect: Mood normal. Speech: Speech normal. Behavior: Behavior normal. Behavior is cooperative. Thought Content: Thought content normal. Judgment: Judgment normal. Summary / Assessment / Plan 1. Coronary artery disease involving [place] heart without angina pectoris, unspecified vessel or lesion type 2. Diabetic polyneuropathy associated with type 2 diabetes mellitus [place] 3. Chronic kidney disease, unspecified CKD stage 4. Essential hypertension, benign 5. Primary pulmonary hypertension [place] 6. Chronic obstructive pulmonary disease, unspecified COPD type ([facility] 7. Patient's noncompliance with other medical treatment and regimen due to unspecified reason 8. Other [place] 9. Hyperlipidemia, unspecified hyperlipidemia type 10. Morbid obesity [place] 11. Depressive disorder 12. Anxiety disorder, unspecified type 13. Cigarette smoker 14. Open wound of lesser toe of left foot without damage to nail, subsequent encounter 15. Acute on chronic diastolic heart failure ([facility]) 16. Other abnormalities of gait and mobility 17. Muscle weakness (generalized) 18. History of UT (myocardial infarction) 19. History of atrial fibrillation 20. Other chronic pain Admit to [facility] for therapies. Continue medications from the hospital but will only do long acting insulin 60 units BID and monitor. Will try to get her a Dexcom or Freestyle darian to assist with better control. Will use house sliding scale coverage for now. Decrease oxycodone 10 mg from Q6 hours prn to Q8 hrs prn. Will add farxiga 10 mg daily for diabetes and CKD. Fair to good rehab potential. She plans on going finding a place to live when she is finished with therapy. Hospital records mentioned that she lives with her but she said she was living with a friend in a hotel. environmental services technician will see her. Full code ELECTRONICALLY SIGNED BY: Carlin Borrego DO documented in this encounter [facility] Evaluation note Diagnosis Coronary artery disease involving skull valley heart without angina pectoris, unspecified vessel or lesion type- Primary Diabetic polyneuropathy associated with type 2 diabetes mellitus ([facility]) Chronic kidney disease, unspecified CKD stage Essential hypertension, benign Primary pulmonary hypertension ([facility]) Primary pulmonary hypertension Chronic obstructive pulmonary disease, unspecified COPD type ([facility]) Patient's noncompliance with other medical treatment and regimen due to unspecified reason Other seizures ([facility]) Hyperlipidemia, unspecified hyperlipidemia type Morbid obesity ([facility]) Morbid obesity Depressive disorder Depressive disorder, not elsewhere classified Anxiety disorder, unspecified type Cigarette smoker Tobacco use disorder Open wound of lesser toe of left foot without damage to nail, subsequent encounter Acute on chronic diastolic heart failure ([facility]) Acute on chronic diastolic heart failure Other abnormalities of gait and mobility Muscle weakness (generalized) History of UT (myocardial infarction) Old myocardial infarction History of atrial fibrillation Personal history of other diseases of circulatory system Other chronic pain [facility] this [facility] Diagnosis Diarrhea, unspecified type- Primary Cigarette smoker Tobacco use disorder Open wound of lesser toe of left foot without damage to nail, subsequent encounter Other abnormalities of gait and mobility Muscle weakness (generalized) documented in this [facility] Diagnosis Acute on chronic diastolic heart failure ([facility] Primary Acute on chronic diastolic heart failure Chronic obstructive pulmonary disease, unspecified COPD type ([facility]) Other abnormalities of gait and mobility Chronic neck pain Cervicalgia Chronic low back pain without sciatica, unspecified back pain laterality [facility] Excessive cerumen in left ear canal- Primary Other abnormalities of gait and mobility Muscle weakness (generalized) Multilevel degenerative disc disease documented in this encounter [facility] filedocumented in this encounter [facility] filedocumented in this encounter [facility] filedocumented in [facility] on filedocumented in this encounter [facility]Not on filedocumented in this encounter [facility] Additional Source Comments FOR RECORDS PERTAINING TO PATIENTS WHO ARE OR HAVE BEEN ENROLLED IN A CHEMICAL DEPENDENCY/SUBSTANCEABUSE PROGRAM, SOME INFORMATION MAY BE OMITTED. This clinical summary was aggregated from multiple sources. Caution should be exercised in using it in the provision of clinical care. This summary normalizes information from multiple sources, and as a consequence, information in this document may materially change the coding, format and clinical context of patient data. In addition, data may be omitted in some cases. CLINICAL DECISIONS SHOULD BE BASED ON THE PRIMARY CLINICAL RECORDS. [facility] [employer] [facility]. provides no warranty or guarantee of the accuracy or completeness of information in this document.
[2023-06-09 17:28] LABS: Basophils Absolute Auto 0.1 10^3/uL (0.0-0.1); Basophils Percent Auto 0.7 % (0.2-2.0); Eosinophils Absolute Auto 0.3 10^3/uL (0.0-0.7); Eosinophils Percent Auto 3.6 % (0.9-7.0); Hematocrit 35.9 % (36.0-48.0); Hemoglobin 11.4 g/dL (12.0-16.0); Immature Granulocytes Abs Auto 0.35 10^3/uL (0.00-0.03); Immature Granulocytes Pct Auto 4.2 % (0.0-0.5); Lymphocytes Absolute Auto 2.9 10^3/uL (1.2-3.8); Lymphocytes Percent Auto 35.5 % (20.5-60.0); Mean Corpuscular HGB Conc 31.8 g/dL (29.9-35.2); Mean Corpuscular Volume 94.5 fL (81.0-99.0); Mean Platelet Volume 9.9 fL (9.5-13.5); Monocytes Absolute Auto 0.6 10^3/uL (0.3-0.8); Neutrophils Absolute Auto 4.1 10^3/uL (1.4-6.5); Platelet Count 228 10^3/uL (150-450); Red Cell Distribution Width 15.2 % (11.0-15.0); White Blood Count 8.3 10^3/uL (4.0-11.0)
[2023-06-09 17:40] LABS: Erythrocyte Sedimentation Rate 106 mm/hr (<=30)
[2023-06-09 17:44] LABS: Alanine Aminotransferase 13 U/L (14-59); Albumin Globulin Ratio 0.5; Albumin Level 2.3 g/dL (3.4-5.0); Alkaline Phosphatase 82 U/L (46-116); Anion Gap 8.4; Aspartate Amino Transferase 11 U/L (15-37); BUN Creatinine Ratio 43.6; Bilirubin Total 0.2 mg/dL (0.2-1.0); Calcium 8.8 mg/dL (8.5-10.1); Carbon Dioxide 32.3 mmol/L (21.0-32.0); Chloride 103 mmol/L (98-107); Estimated GFR (African America 57 (>=60); Estimated GFR (Non-African Ame 47 (>=60); Glucose 179 mg/dL (74-106); Potassium 3.7 mmol/L (3.5-5.1); Sodium 140 mmol/L (136-145); Total Protein 7.3 g/dL (6.4-8.2)
[2023-06-09 17:46] LABS: Lactate/Lactic Acid 1.1 mmol/L (0.4-2.0)
[2023-06-09] MEDS: VANCOMYCIN HCL 1,000 MG in 0.9 % SODIUM CHLORIDE 250 ML 250 MG IV (17:54)
--- OUTSIDE RECORDS SUMMARY | 2023-06-09 18:51 | XMS_ITS | CCD ---
Author Name Unknown Address [address] [facility] [address] [place], [place] [id number] Organization [facility] Care Team Providers Care Sleeper Cutter Name Role Phone Unavailable Primary Care Provider [...] Coronary arteriosclerosis; Translations: [Atherosclerotic heart disease of [place] coronary artery without angina pectoris] Onset: 04-26-2023 [...] 97.59 [degF] Carlin Furlong DO Work Phone: [facility] [employer] 05-05-2023 22:06-0500 Body weight 179.44 kg Carlin Furlong DO Work Phone: [facility] [employer] 05-05-2023 22:06-0500 Diastolic blood pressure 74 mm[Hg] Carlin Furlong DO Work Phone: [facility] [employer] 05-05-2023 22:06-0500 Heart rate 88 /min Carlin Furlong DO Work Phone: [facility] [employer] [facility] 05-05-2023 22:06-0500 Respiratory rate 18 /min [facility] 22:06-0500 SaO2% (BldA) [Mass fraction] 95 % Carlin [facility]long DO [facility] 05-05-2023 22:06-0500 Systolic blood pressure 136 mm[Hg] Carlin Furlong DO Work Phone: [facility] [employer] [facility] 04-29-2023 16:46-0500 Diastolic blood pressure 61 mm[Hg] Car[facility]long DO [facility] 04-29-2023 16:46-0500 Heart rate 70 /min Carlin Furlong DO Work Phone: [facility] [employer] 04-29-2023 16:46-0500 Systolic blood pressure 127 mm[Hg] Carlin Furlong DO Work Phone: [facility] [employer] [facility] 04-26-2023 17:11-0500 Body temperature 97.2 [degF] Carlin Furlong DO Work Phone: [facility] [employer] [facility] 04-26-2023 17:11-0500 Body weight 117.48 kg Carlin Furlong DO Work Phone: [facility] [employer] [facility] 04-26-2023 17:11-0500 Diastolic blood pressure 72 mm[Hg] Carlin Furlong DO Work Phone: [facility] 04-26-2023 17:11-0500 Heart rate 91 /min Carlin Furlong DO Work Phone: [facility] [employer] [facility] 04-26-2023 17:11-0500 Respiratory rate 20 /min Carlin Furlong DO Work Phone: [facility] 04-26-2023 17:11-0500 SaO2% (BldA) [Mass fraction] 97 % Carlin Furlong DO Work Phone: [facility] 04-26-2023 17:11-0500 Systolic blood pressure 129 mm[Hg] Carlin Furlong DO Work Phone: [facility] 04-26-2023 16:10-0500 Body temperature 98.1 [degF] Carlin Furlong DO Work Phone: [facility] [employer] [facility] 04-26-2023 16:10-0500 Diastolic blood pressure 70 mm[Hg] Carlin Furlong DO Work Phone: [facility] 04-26-2023 16:10-0500 Heart rate 86 /min Carlin Furlong DO Work Phone: [facility] 04-26-2023 16:10-0500 Respiratory rate 18 /min Carlin Furlong DO Work Phone: [facility] 04-26-2023 16:10-0500 SaO2% (BldA) [Mass fraction] 97 % Carlin Furlong DO Work Phone: [facility] 04-26-2023 16:10-0500 Systolic blood pressure 122 mm[Hg] Carlin Borrego DO Work Phone: [facility] Encounters Encounter Date Encounter Type Care Provider [...] Acute on chronic miya stolic heart failure ([facility]) (Primary Dx); Chronic obstructive pulmonary disease, unspecified COPD type ([facility]); Other abnormalities of gait and mobility; Chronic [...] on above: Coronary artery dise ase involving [place] heart without angina pectoris, unspecified vessel or lesion type (Primary Dx); Diabetic polyneuropathy associated with type 2 diabetes mellitus ([facility]); Chronic kidney disease, unspecified CKD stage; Essential hypertension, benign; Primary pulmonary hypertension ([facility]); Chronic obstructive pulmonary disease, unspecified COPD type ([facility]); Patient's noncompliance with other medical treatment and regimen due to unspecified reason; Other seizures ([facility]); Hyperlipidemia, unspecified hyperlipidemia type; Morbid obesity ([facility]); Depressive disorder; Anxiety disorder, unspecified type; Cigarette smoker; Open wound of lesser toe of left foot without damage to nail, subsequent encounter; Acute on chronic diastolic heart failure ([facility]); Other abnormalities of gait and mobility; Muscle weakness (generalized); History of NC (myocardial infarction); History of atrial fibrillation; Other chronic pain Plan of Treatment Date Care Activity Detail Author Start: 10-13-2024 Tobacco Counseling Tobacco Counseling [facility] Start: 12-26-2022 Influenza vaccination Influenza Vaccine [facility] Start: 2011 Administration of varicella zoster vaccine Zoster (Shingles) Vaccine (1 of 2) [facility] Start: 1982 Screening for malignant neoplasm of cervix Pap Smear [facility] Start: 1980 DTaP,Tdap and Td Vaccines (1 - Tdap) DTaP,Tdap and Td Vaccines (1 - Tdap) [facility] Start: 1979 Adult BMI Screening Adult BMI Screening [facility] Start: 1979 Diabetic foot examination Diabetic Foot Exam [facility] Start: 1973 Depression Screening Depression Screening [facility] Start: 1973 Tobacco Screening Tobacco Screening [facility] Start: 1961 Glaucoma screening Diabetic Ophthalmology Exam [facility] Social History Date Type Detail Facility Start: 04-26-2023 Tobacco smoking stat [facility] Smokes tobacco daily [facility] History of tobacco use Cigarette Smoker P [facility] Start: 04-26-2023 End: 05-05-2023 Cigarettes smoked current (pack per day) - Reported 0.3 [facility] Start: 04-26-2023 Tobacco use and exposure Smokeless tobacco non-user [facility] Start: 04-26-2023 End: 05-05-2023 Alcohol intake Current drinker of alcohol (finding) [facility] Start: 04-26-2023 End: 05-05-2023 Tobacco use panel [facility] Start: 1960 Sex Assigned At Not on file P [facility] Tobacco smoking stat [facility] Tobacco smoking consumption unknown [facility] Clinical Notes 04-14-2023 to 05-05-2023 Carlin Borrego, DO - 05/05/2023 10:06 PM Deepti Borrego, DO - 04/29/2023 4:33 PM Deepti Borrego, DO - 04/28/2023 11:59 PM Deepti Borrego, DO - 04/21/2023 11:59 PM EST Note Date & Type Note Facility 05-05-2023 History of Present illness Narrative Patient Name: Linda Sullivan Date of : 1960 Date of Service: 05/05/2023 Facility: [facility] Type of Visit: Skilled Visit Subjective Linda Sullivan is a 63 y.o. female seen today at [facility] facility for therapy visit. Laurie is in therapy but will be discharged soon. She wanted to see me because she hasn't had any ear drops. I ordered them last week. Her ear feels plugged. She requires max encouragement to participate. She refuses to ambulate. She is hoping to get into a [facility] center in [facility]. Her x-rays showed moderate degenerative disc disease. [...] Carlin Borrego DO documented in this encounter [facility] 04-29-2023 History of Present illness Narrative Addendum Will check x-ray of cervical and lumbar spine. Nurses report she is using oxycodone 10 mg about twice a day. Will decrease oxycodone-acetaminophen 7.5-325 1 Q8hrs prn pain. Attempted to check [facility] but they were having technical difficulties. Unable to retrieve report. documented in this encounter [facility] 04-28-2023 History of Present illness Narrative Patient Name: Linda Sullivan Date of : 1960 Date of Service: 04/28/2023 Facility: [facility] Type of Visit: Skilled Visit Subjective Linda Sullivan is a 63 y.o. female seen today at [facility] facility for therapy visit. Laurie is in therapy for increasing strength, endurance and functional mobility. She requires max encouragement for participation. She says she has chronic pain in her back-neck and low back mostly but also thoracic spine. She used to see Dr. Lu at [facility] but was dismissed because she missed an [...] 7 days. Refer to [place] [facility]. Continue therapy to reach MMI. Continue other medications as before. ELECTRONICALLY SIGNED BY: Carlin Borrego DO documented in this encounter [facility] [employer] 04-21-2023 History of Present illness Narrative Patient Name: Linda Sullivan Date of : 1960 Date of Service: 04/21/2023 Facility: [facility] Type of Visit: Skilled Visit Subjective Linda Sullivan is a 63 y.o. female seen today at [facility] facility for therapy visit. Staff and patient [...] Carlin Borrego, DO documented in this encounter [employer] 04-14-2023 History of Present illness Narrative Patient Name: Linda Sullivan Date of : 1960 Date of Service: 04/26/2023 Facility: [facility] Type of Visit: Admission H&P Subjective Linda Sullivan is a 63 y.o. female seen today at [facility] facility for admission. Laurie presents to [facility] [place] [facility] [place] was admitted for hyperglycemia and chest pain rule out NC. She was in another facility last month and was discharged to home but did not have any pen needles so she wasn't giving herself any insulin for a week or so. She then presented to [facility] [place] and was admitted. It doesn't look like she had an NC at this last visit. She had an NC in 2015. She has a stent in 2016 and another in 2019 while living in [place]. She has chronic pain and takes oxycodone [...] / Plan 1. Coronary artery disease involving [place] heart without angina pectoris, unspecified vessel or lesion type 2. Diabetic polyneuropathy associated with type 2 diabetes mellitus ([facility]) 3. Chronic kidney disease, unspecified CKD stage 4. Essential hypertension, benign 5. Primary pulmonary hypertension ([facility]) 6. Chronic obstructive pulmonary disease, unspecified COPD type ([facility]) 7. Patient's noncompliance with other medical treatment and regimen due to unspecified reason 8. Other seizures ([facility]) 9. Hyperlipidemia, unspecified hyperlipidemia type 10. Morbid obesity ([facility]) 11. Depressive disorder 12. Anxiety disorder, unspecified type 13. Cigarette smoker 14. Open wound of lesser toe of left foot without damage to nail, subsequent encounter 15. Acute on chronic diastolic heart failure ([facility]) 16. Other abnormalities of gait and mobility 17. Muscle weakness (generalized) 18. History of NC (myocardial infarction) 19. History of atrial fibrillation 20. Other chronic pain Admit to [facility] for therapies. Continue medications from the [...] living with a friend in a hotel. director of business services will see her. Full code ELECTRONICALLY SIGNED BY: Carlin Borrego DO documented in this encounter [facility] Evaluation note Diagnosis Coronary artery disease involving [place] heart without angina pectoris, unspecified vessel or lesion type- Primary Diabetic polyneuropathy associated with type 2 diabetes mellitus ([facility]) Chronic kidney disease, unspecified CKD stage Essential hypertension, benign Primary pulmonary hypertension ([facility]) Primary pulmonary hypertension Chronic obstructive pulmonary disease, unspecified COPD type ([facility]) Patient's noncompliance with other medical treatment and regimen due to unspecified reason Other seizures ([facility]) Hyperlipidemia, unspecified hyperlipidemia type Morbid obesity ([facility]) Morbid obesity Depressive disorder Depressive disorder, not elsewhere classified Anxiety disorder, unspecified type Cigarette smoker Tobacco use disorder Open wound of lesser toe of left foot without damage to nail, subsequent encounter Acute on chronic diastolic heart failure ([facility]) Acute on chronic diastolic heart failure Other abnormalities of gait and mobility Muscle weakness (generalized) History of NC (myocardial infarction) Old myocardial infarction History of atrial fibrillation Personal history of other diseases of circulatory system Other chronic pain documented [facility] this encounter [facility] Diagnosis Diarrhea, unspecified type- Primary Cigarette smoker Tobacco use disorder Open wound of lesser toe of left foot without damage to nail, subsequent encounter Other abnormalities of gait and mobility Muscle weakness (generalized) documented in this encounter [facility]* Diagnosis Acute on chronic diastolic heart failure ([facility])- Primary Acute on chronic diastolic heart failure Chronic obstructive pulmonary disease, unspecified COPD type ([facility]) Other abnormalities of gait and mobility Chronic neck pain Cervicalgia Chronic low back pain without sciatica, unspecified back pain laterality documented [facility] Diagnosis Excessive cerumen in left ear canal- Primary Other abnormalities of gait and mobility Muscle weakness (generalized) Multilevel degenerative disc disease documented in this encounter [facility]InstructionsNot on filedocumented in this encounter [facility] SystemInstructionsNot on filedocumented in this encounter [facility] on filedocumented in this encounter [facility]ructionsNot on filedocumented in this encounter [facility] SystemInstructionsNot on filedocumented in this encounter [facility] Additional Source Comments FOR RECORDS PERTAINING TO [...] BE BASED ON THE PRIMARY CLINICAL RECORDS. [facility] [employer] [facility] provides no warranty or guarantee of the accuracy or completeness of information in this document.
[2023-06-09 20:09] LABS: Glucometer 170 mg/dL (74-106)
--- NOTE | 2023-06-09 20:30 | RESP.RT ---
ABG attempted by both RT's and unsuccessful. Pt stated she does not want to be poked again.
[2023-06-09 20:35] VITALS: BP 119/71; PULSE 87; RESP 18; TEMP 37.2; O2SAT 91; BMI 51.7
[2023-06-09 20:43] LABS: Adenovirus NOT DETECTED (NOT DETECTE); Bordetella parapertussis NOT DETECTED (NOT DETECTE); Coronavirus 229E NOT DETECTED (NOT DETECTE); Coronavirus HKU1 NOT DETECTED (NOT DETECTE); Coronavirus NL63 NOT DETECTED (NOT DETECTE); Coronavirus OC43 NOT DETECTED (NOT DETECTE); Human Metapneumovirus NOT DETECTED (NOT DETECTE); Human Rhinovirus/Enterovirus NOT DETECTED (NOT DETECTE); Influenza A NOT DETECTED (NOT DETECTE); Influenza B NOT DETECTED (NOT DETECTE); Mycoplasma pneumoniae NOT DETECTED (NOT DETECTE); Parainfluenza Virus 1 NOT DETECTED (NOT DETECTE); Parainfluenza Virus 2 NOT DETECTED (NOT DETECTE); Parainfluenza Virus 3 NOT DETECTED (NOT DETECTE); Parainfluenza Virus 4 NOT DETECTED (NOT DETECTE); Respiratory Syncytial Virus NOT DETECTED (NOT DETECTE); SARS-CoV-2 NOT DETECTED (NOT DETECTE)
[2023-06-09] MEDS: ALBUTEROL SULFATE 2.5 MG/3 ML VIAL NEB IH (20:43)
--- NOTE | 2023-06-09 21:10 | PC.NURSE ---
Upon entry into [facility] after shift report found patient lethargic, lungs coarse wheezing , Rhonchi, crackles. BS obtained 170, vs obtained, and notified [facility] of patient's condition. Orders received. After attempting to complete admission patient started arousing after blood draws and became alert and oriented x3. Breathing tx. also completed. Spoke with Susana GRANADO in [place] to find out patient's condition while in ER.
[2023-06-09 21:14] LABS: PCO2 VBG 46.9 mmHg (40.0-52.0); pH VBG 7.405 (7.330-7.430)
[2023-06-09 22:03] VITALS: BP 111/66; PULSE 95; RESP 18; TEMP 36.6; O2SAT 95
[2023-06-09 22:05] VITALS: O2SAT 95
[2023-06-09 22:07] LABS: Glucometer 194 mg/dL (74-106)
[2023-06-09] MEDS: 0.9 % SODIUM CHLORIDE 1,000 ML 100 ML IV (22:08)
[2023-06-09] MEDS: CEFTRIAXONE 1,000 MG in 0.9 % SODIUM CHLORIDE 50 ML 100 MG IV (22:08)
[2023-06-09] MEDS: INSULIN ASPART 300 UNIT/3 ML PEN SUBQ (22:09)
[2023-06-10] VITALS (11 sets, daily range): BP systolic 128–167; BP diastolic 74–109; PULSE 92–99; RESP 16–20; TEMP 36.8–37.6; O2SAT 89–96
[2023-06-10] MEDS: ALBUTEROL SULFATE 2.5 MG/3 ML VIAL NEB IH (03:04)
[2023-06-10 05:35] LABS: Basophils Absolute Auto 0.1 10^3/uL (0.0-0.1); Basophils Percent Auto 0.6 % (0.2-2.0); Eosinophils Absolute Auto 0.2 10^3/uL (0.0-0.7); Eosinophils Percent Auto 2.3 % (0.9-7.0); Hemoglobin 10.7 g/dL (12.0-16.0); Immature Granulocytes Abs Auto 0.27 10^3/uL (0.00-0.03); Immature Granulocytes Pct Auto 3.5 % (0.0-0.5); Lymphocytes Absolute Auto 1.9 10^3/uL (1.2-3.8); Lymphocytes Percent Auto 24.5 % (20.5-60.0); Mean Corpuscular HGB Conc 31.5 g/dL (29.9-35.2); Mean Corpuscular Hemoglobin 29.6 pg (26.7-34.0); Mean Corpuscular Volume 93.9 fL (81.0-99.0); Mean Platelet Volume 10.2 fL (9.5-13.5); Monocytes Absolute Auto 0.6 10^3/uL (0.3-0.8); Monocytes Percent Auto 7.4 % (1.7-12.0); Neutrophils Absolute Auto 4.8 10^3/uL (1.4-6.5); Neutrophils Percent Auto 61.7 % (43.0-75.0); Platelet Count 225 10^3/uL (150-450); Red Blood Count 3.62 10^6/uL (4.20-5.40); Red Cell Distribution Width 14.8 % (11.0-15.0); White Blood Count 7.8 10^3/uL (4.0-11.0)
[2023-06-10 05:47] LABS: Alanine Aminotransferase 14 U/L (14-59); Albumin Globulin Ratio 0.5; Albumin Level 2.1 g/dL (3.4-5.0); Alkaline Phosphatase 71 U/L (46-116); Anion Gap 12.5; Aspartate Amino Transferase 9 U/L (15-37); BUN Creatinine Ratio 39.3; Bilirubin Total 0.2 mg/dL (0.2-1.0); Calcium 8.6 mg/dL (8.5-10.1); Carbon Dioxide 29.5 mmol/L (21.0-32.0); Chloride 103 mmol/L (98-107); Estimated GFR (African America 57 (>=60); Estimated GFR (Non-African Ame 47 (>=60); Globulin 4.5 g/dL; Glucose 194 mg/dL (74-106); Sodium 141 mmol/L (136-145); Total Protein 6.6 g/dL (6.4-8.2)
[2023-06-10] MEDS: VANCOMYCIN HCL 2,000 MG in 0.9 % SODIUM CHLORIDE 500 ML 250 MG IV (06:00)
--- OUTSIDE RECORDS SUMMARY | 2023-06-10 07:03 | XMS_ITS | CCD ---
Author Name Unknown Address [address] [facility] [address] [place], [place] [id number] Organization [facility] Care Team Providers Care Book Sorter Name Role Phone Unavailable Primary Care Provider [...] Coronary arteriosclerosis; Translations: [Atherosclerotic heart disease of [place] coronary artery without angina pectoris] Onset: 04-26-2023 [...] 97.59 [degF] Carlin Furlong DO Work Phone: [facility] 05-05-2023 22:06-0500 Body weight 179.44 kg Carlin Furlong DO Work Phone: [facility] 05-05-2023 22:06-0500 Diastolic blood pressure 74 mm[Hg] Carlin Furlong DO Work Phone: [facility] 05-05-2023 22:06-0500 Heart rate 88 /min Carlin Furlong DO Work Phone: [facility] 05-05-2023 22:06-0500 Respiratory rate 18 /min [facility] 05-05-2023 22:06-0500 SaO2% (BldA) [Mass fraction] 95 % Carlin Furlong DO [facility] 05-05-2023 22:06-0500 Systolic blood pressure 136 mm[Hg] Carlin Furlong DO Work Phone: [facility] 04-29-2023 16:46-0500 Diastolic blood pressure 61 mm[Hg] Carlin Furlong DO [facility] 04-29-2023 16:46-0500 Heart rate 70 /min Carlin Furlong DO Work Phone: [facility] 04-29-2023 16:46-0500 Systolic blood pressure 127 mm[Hg] Carlin Furlong DO Work Phone: [facility] 04-26-2023 17:11-0500 Body temperature 97.2 [degF] Carlin Furlong DO Work Phone: [facility] 04-26-2023 17:11-0500 Body weight 117.48 kg Carlin Furlong DO Work Phone: [facility] 04-26-2023 17:11-0500 Diastolic blood pressure 72 mm[Hg] Carlin Furlong DO Work Phone: [facility] 04-26-2023 17:11-0500 Heart rate 91 /min Carlin Furlong DO Work Phone: [facility] 04-26-2023 17:11-0500 Respiratory rate 20 /min Carlin Furlong DO Work Phone: [facility] 04-26-2023 17:11-0500 SaO2% (BldA) [Mass fraction] 97 % Carlin Furlong DO Work Phone: [facility] 04-26-2023 17:11-0500 Systolic blood pressure 129 mm[Hg] Carlin Furlong DO Work Phone: [facility] 04-26-2023 16:10-0500 Body temperature 98.1 [degF] Carlin Furlong DO Work Phone: [facility] 04-26-2023 16:10-0500 Diastolic blood pressure 70 mm[Hg] Cariln Furlong DO Work Phone: [facility] 04-26-2023 16:10-0500 Heart rate 86 /min Carlin Furlong DO Work Phone: [facility] 04-26-2023 16:10-0500 Respiratory rate 18 /min Carlin Furlong DO Work Phone: [facility] 04-26-2023 16:10-0500 SaO2% (BldA) [Mass fraction] 97 % Cralin Furlong DO Work Phone: [facility] 04-26-2023 16:10-0500 Systolic blood pressure 122 mm[Hg] Carlin Borrego DO Work Phone: [facility] Encounters Encounter Date Encounter Type Care Provider [...] Acute on chronic miya stolic heart failure ([facility]) (Primary Dx); Chronic obstructive pulmonary disease, unspecified COPD type ([facility]); Other abnormalities of gait and mobility; Chronic [...] on above: Coronary artery dise ase involving [place] heart without angina pectoris, unspecified vessel or lesion type (Primary Dx); Diabetic polyneuropathy associated with type 2 diabetes mellitus ([facility]); Chronic kidney disease, unspecified CKD stage; Essential hypertension, benign; Primary pulmonary hypertension ([facility]); Chronic obstructive pulmonary disease, unspecified COPD type ([facility]); Patient's noncompliance with other medical treatment and regimen due to unspecified reason; Other seizures ([facility]); Hyperlipidemia, unspecified hyperlipidemia type; Morbid obesity ([facility]); Depressive disorder; Anxiety disorder, unspecified type; Cigarette smoker; Open wound of lesser toe of left foot without damage to nail, subsequent encounter; Acute on chronic diastolic heart failure ([facility]); Other abnormalities of gait and mobility; Muscle weakness (generalized); History of PA (myocardial infarction); History of atrial fibrillation; Other chronic pain Plan of Treatment Date Care Activity Detail Author Start: 10-13-2024 Tobacco Counseling Tobacco Counseling [facility] Start: 12-26-2022 Influenza vaccination Influenza Vaccine [facility] Start: 2011 Administration of varicella zoster vaccine Zoster (Shingles) Vaccine (1 of 2) [facility] Start: 1982 Screening for malignant neoplasm of cervix Pap Smear [facility] Start: 1980 DTaP,Tdap and Td Vaccines (1 - Tdap) DTaP,Tdap and Td Vaccines (1 - Tdap) [facility] Start: 1979 Adult BMI Screening Adult BMI Screening [facility] Start: 1979 Diabetic foot examination Diabetic Foot Exam [facility] Start: 1973 Depression Screening Depression Screening [facility] Start: 1973 Tobacco Screening Tobacco Screening [facility] Start: 1961 Glaucoma screening Diabetic Ophthalmology Exam [facility] Social History Date Type Detail Facility Start: 04-26-2023 Tobacco smoking stat [facility] Smokes tobacco daily [facility] History of tobacco use Cigarette Smoker P [facility] Start: 04-26-2023 End: 05-05-2023 Cigarettes smoked current (pack per day) - Reported 0.3 [facility] Start: 04-26-2023 Tobacco use and exposure Smokeless tobacco non-user [facility] Start: 04-26-2023 End: 05-05-2023 Alcohol intake Current drinker of alcohol (finding) [facility] Start: 04-26-2023 End: 05-05-2023 Tobacco use panel [facility] Start: 1960 Sex Assigned At Not on file P [facility] Tobacco smoking stat [facility] Tobacco smoking consumption unknown [facility] Clinical Notes 04-14-2023 to 05-05-2023 Carlin Borrego, DO - 05/05/2023 10:06 PM Deepti Borrego, DO - 04/29/2023 4:33 PM Deepti Borrego, DO - 04/28/2023 11:59 PM Deepti Borrego, DO - 04/21/2023 11:59 PM EST Note Date & Type Note Facility 05-05-2023 History of Present illness Narrative Patient Name: Linda Sullivan Date of : 1960 Date of Service: 05/05/2023 Facility: [facility] Type of Visit: Skilled Visit Subjective Linda Sullivan is a 63 y.o. female seen today at detention facility for therapy visit. Laurie is in therapy but will be discharged soon. She wanted to see me because she hasn't had any ear drops. I ordered them last week. Her ear feels plugged. She requires max encouragement to participate. She refuses to ambulate. She is hoping to get into a jail center in [facility]. Her x-rays showed moderate degenerative disc [...] Carlin Borrego DO documented in this encounter [facility] 04-29-2023 History of Present illness Narrative Addendum Will check x-ray of cervical and lumbar spine. Nurses report she is using oxycodone 10 mg about twice a day. Will decrease oxycodone-acetaminophen 7.5-325 1 Q8hrs prn pain. Attempted to check [facility] but they were having technical difficulties. Unable to retrieve report. documented in this encounter [facility] 04-28-2023 History of Present illness Narrative Patient Name: Linda Sullivan Date of : 1960 Date of Service: 04/28/2023 Facility: [facility] Type of Visit: Skilled Visit Subjective Linda Sullivan is a 63 y.o. female seen today at detention facility for therapy visit. Laurie is in therapy for increasing strength, endurance and functional mobility. She requires max encouragement for participation. She says she has chronic pain in her back-neck and low back mostly but also thoracic spine. She used to see Dr. Lu at [facility] but was dismissed because she missed an [...] 7 days. Refer to pain management at [facility]. Continue therapy to reach MMI. Continue other medications as before. ELECTRONICALLY SIGNED BY: Carlin Borrego DO documented in this encounter [facility] 04-21-2023 History of Present illness Narrative Patient Name: Linda Sullivan Date of : 1960 Date of Service: 04/21/2023 Facility: [facility] Type of Visit: Skilled Visit Subjective Linda Sullivan is a 63 y.o. female seen today at detention facility for therapy visit. Staff and patient [...] Carlin Borrego, DO documented in this encounter [facility] 04-14-2023 History of Present illness Narrative Patient Name: Linda Sullivan Date of : 1960 Date of Service: 04/26/2023 Facility: [facility] Type of Visit: Admission H&P Subjective Linda Sullivan is a 63 y.o. female seen today at detention facility for admission. Laurie presents to [facility] from [facility] where she was admitted for hyperglycemia and chest pain rule out PA. She was in another facility last month and was discharged to home but did not have any pen needles so she wasn't giving herself any insulin for a week or so. She then presented to [facility] ED and was admitted. It doesn't look like she had an PA at this last visit. She had an PA in 2015. She has a stent in 2016 and another in 2019 while living in [place]. She has chronic pain and takes oxycodone [...] / Plan 1. Coronary artery disease involving [place] heart without angina pectoris, unspecified vessel or lesion type 2. Diabetic polyneuropathy associated with type 2 diabetes mellitus ([facility]) 3. Chronic kidney disease, unspecified CKD stage 4. Essential hypertension, benign 5. Primary pulmonary hypertension ([facility]) 6. Chronic obstructive pulmonary disease, unspecified COPD type ([facility]) 7. Patient's noncompliance with other medical treatment and regimen due to unspecified reason 8. Other seizures ([facility]) 9. Hyperlipidemia, unspecified hyperlipidemia type 10. Morbid obesity ([facility]) 11. Depressive disorder 12. Anxiety disorder, unspecified type 13. Cigarette smoker 14. Open wound of lesser toe of left foot without damage to nail, subsequent encounter 15. Acute on chronic diastolic heart failure ([facility]) 16. Other abnormalities of gait and mobility 17. Muscle weakness (generalized) 18. History of PA (myocardial infarction) 19. History of atrial fibrillation 20. Other chronic pain Admit to [facility] for therapies. Continue medications from the [...] living with a friend in a hotel. office services associate will see her. Full code ELECTRONICALLY SIGNED BY: Carlin Borrego DO documented in this encounter [facility] Evaluation note Diagnosis Coronary artery disease involving [place] heart without angina pectoris, unspecified vessel or lesion type- Primary Diabetic polyneuropathy associated with type 2 diabetes mellitus ([facility]) Chronic kidney disease, unspecified CKD stage Essential hypertension, benign Primary pulmonary hypertension ([facility]) Primary pulmonary hypertension Chronic obstructive pulmonary disease, unspecified COPD type ([facility]) Patient's noncompliance with other medical treatment and regimen due to unspecified reason Other seizures ([facility]) Hyperlipidemia, unspecified hyperlipidemia type Morbid obesity ([facility]) Morbid obesity Depressive disorder Depressive disorder, not elsewhere classified Anxiety disorder, unspecified type Cigarette smoker Tobacco use disorder Open wound of lesser toe of left foot without damage to nail, subsequent encounter Acute on chronic diastolic heart failure ([facility]) Acute on chronic diastolic heart failure Other abnormalities of gait and mobility Muscle weakness (generalized) History of PA (myocardial infarction) Old myocardial infarction History of atrial fibrillation Personal history of other diseases of circulatory system Other chronic pain documented [facility] this [facility] Diagnosis Diarrhea, unspecified type- Primary Cigarette smoker Tobacco use disorder Open wound of lesser toe of left foot without damage to nail, subsequent encounter Other abnormalities of gait and mobility Muscle weakness (generalized) documented in this [facility]* Diagnosis Acute on chronic diastolic heart failure ([facility])- Primary Acute on chronic diastolic heart failure Chronic obstructive pulmonary disease, unspecified COPD type ([facility]) Other abnormalities of gait and mobility Chronic neck pain Cervicalgia Chronic low back pain without sciatica, unspecified back pain laterality [facility] Diagnosis Excessive cerumen in left ear canal- Primary Other abnormalities of gait and mobility Muscle weakness (generalized) Multilevel degenerative disc disease documented in this encounter [facility] on filedocumented in this encounter [facility]ructionsNot on filedocumented in this encounter [facility] on filedocumented in this encounter [facility]Not on filedocumented in this encounter [facility]InstructionsNot on filedocumented in this encounter [facility] Additional Source Comments FOR RECORDS PERTAINING TO [...] BE BASED ON THE PRIMARY CLINICAL RECORDS. [facility] [employer] [facility]. provides no warranty or guarantee of the accuracy or completeness of information in this document.
[2023-06-10 07:21] LABS: Erythrocyte Sedimentation Rate 63 mm/hr (<=30)
[2023-06-10 07:27] LABS: Ammonia 29 umol/L (11-32)
[2023-06-10 07:28] LABS: C Reactive Protein 1.36 mg/dL (<=0.50)
[2023-06-10 07:59] LABS: Glucometer 149 mg/dL (74-106)
--- NOTE | 2023-06-10 09:34 | CM.NOTE ---
Rounds made with Dr. Sherman, awaiting podiatry to evaluate pt for further recommendations. Pt is [facility] care at [place], pt will return to [place].
--- NOTE | 2023-06-10 09:41 | P.HP_ITS ---
H&P: HPI History of Present Illness Chief complaint: WOUND CHECK, Diabetic Toe Narrative: Patient presented to the emergency room due to diabetic foot wound worsening. Denies other complaints. On my exam this morning she does have increasing lung congestion and compared to what was documented in the emergency room. She also had an issue overnight with being somewhat nonresponsive. Unable to get ABG. May still need to progress with that later today. Review of Systems ROS Status of ROS 10 or more systems reviewed and unremark able except as noted in history and below [facility] Medical History (Updated 06/09/23 @ 21:18 by Magali Roa) COPD (chronic obstructive pulmonary disease) ?J44.9 - Chronic obstructive pulmonary disease, unspecified (ICD-10) Heart attack ?I21.9 - Acute myocardial infarction, unspecified (ICD-10) High cholesterol ?E78.00 - Pure hypercholesterolemia, unspecified (ICD-10) HTN (hypertension) ?I10 - Essential (primary) hypertension (ICD-10) Diabetic acidosis, type II ?E11.10 - Type 2 diabetes mellitus with ketoacidosis without coma (ICD-10) Social History (Updated 06/09/23 @ 21:20 by Magali Roa) Within the past year, how often did you have a drink containing alcohol: never Score interpretation: A score less than 3 is consistent with normal alcohol consumption. Smoking status: Former smoker Second hand tobacco smoke exposure: No Non-prescribed substance use: denies use Previous occupational history: retired Known occupational exposures/hazards: No Highest level of school completed/degree received: Bachelor's degree Do you want help with school or training: No Are you now , , , , never or living with a partner: don't know In a typical week, how many times do you talk on the telephone with family, friends, or neighbors: never How often do you get together with friends or relatives: never How often do you attend alevism or anabaptism services: never Do you belong to any clubs or organizations such as alevism groups unions, fraternal or athletic groups, or school groups: no Total score: 0 Score interpretation: A score of less than or equal to 1 indicates the most socially isolated. Little interest or pleasure in doing things: several days Feeling down, depressed, or hopeless: several days Feel stressed/tense/nervous/anxious/difficulty sleeping: decline to answer Life stressors: unknown source of stress Due to disability, difficulty making decisions: No Do you think of yourself as: straight/heterosexual Gender Identity: female Meds Home Medications and Allergies Home Medications Medication Instructions Recorded Confirmed Type albuterol sulfate 2.5 mg/3 mL 2.5 mg continuous nebulization Q4H 05/14/23 06/09/23 History (0.083 %) solution for nebulization PRN shortness of breath or wheezing albuterol sulfate 90 mcg/actuation 2 puff inhalation Q6H PRN 05/14/23 06/09/23 History aerosol inhaler shortness of breath or wheezing aripiprazole 5 mg tablet 10 mg PO DAILY 05/14/23 06/09/23 History atorvastatin 40 mg tablet 40 mg PO DAILY 05/14/23 06/09/23 History clonidine HCl 0.1 mg tablet 0.1 mg PO BID 05/14/23 06/09/23 History clopidogrel 75 mg tablet 75 mg PO DAILY 05/14/23 06/09/23 History cyclobenzaprine 10 mg tablet 10 mg PO TID 05/14/23 06/09/23 History Allergies Allergy/AdvReac Type Severity Reaction Status Date / Time aspirin Allergy Severe Verified 06/09/23 22:20 levofloxacin [From Levaquin] Allergy Intermediate Hives Verified 06/09/23 22:20 dextrose Allergy Unknown Verified 06/09/23 22:20 Penicillins Allergy Unknown Verified 06/09/23 22:20 iv contrast Allergy Unknown Uncoded 06/09/23 22:20 Exam Constitutional Vital Signs, click to edit/add: Last Vital Signs Temp 99.6 F 06/10/23 04:54 Pulse 97 H 06/10/23 04:54 Resp 18 06/10/23 04:54 BP 128/74 06/10/23 04:54 Pulse Ox 92 L 06/10/23 04:54 O2 Del Method Nasal Cannula 06/10/23 04:54 O2 Flow Rate 4 06/10/23 04:54 Documenting provider has reviewed patient's vital signs: yes Common normals: apparent distress (Cranky) Chest Common normals: inspection of chest normal Respiratory Common normals: normal respiratory effort and no retractions Auscultation: rhonchi and wheezes Cardio Common normals: regular rate and regular rhythm GI Common normals: negative for Normal to inspection, nondistended, normoactive bowel sounds present (Obese) Extremity Other: See wound consultation notes Results Labs Labs: Short CBC 06/09/23 06/10/23 Range/Units 17:20 04:39 WBC 8.3 7.8 (4.0-11.0) 10^3/uL Hgb 11.4 L 10.7 L (12.0-16.0) g/dL Hct 35.9 L 34.0 L (36.0-48.0) % Plt Count 228 225 (150-450) 10^3/uL BMP 06/09/23 06/10/23 17:20 04:39 Sodium 140 141 Potassium 3.7 4.0 Chloride 103 103 Carbon Dioxide 32.3 H 29.5 BUN 51.0 H 46.0 H Creatinine 1.17 H 1.17 H Glucose 179 H 194 H Calcium 8.8 8.6 Liver Function 06/09/23 06/10/23 Range/Units 17:20 04:39 Total Bilirubin 0.2 0.2 (0.2-1.0) mg/dL AST 11 L 9 L (15-37) U/L ALT 13 L 14 (14-59) U/L Alkaline Phosphatase 82 71 (46-116) U/L Albumin 2.3 L 2.1 L (3.4-5.0) g/dL ABG ABG results: 06/09/23 21:06 VBG pH 7.405 VBG pCO2 46.9 Assessment and Plan Assessment and Plan (1) Toe necrosis: (2) COPD exacerbation: Plan Uncontrolled diabetes mellitus leading to diabetic foot ulcer. Consultation to podiatry. Plan per podiatry. Continue with current antibiotics Acute exacerbation of COPD-add aerosol treatments. She will be on antibiotics. Will hold off on steroids secondary to sugars being uncontrolled already-try to get ABG, patient currently refusing, consideration for doing well under anesthesia, check respiratory panel, consider IPV Uncontrolled diabetes mellitus-insulin sliding scale Pickwickian syndrome-diet management Iron deficiency anemia-monitor daily-check occult blood Chronic kidney disease stage II as well as kidney disease related to poorly controlled diabetes mellitus-monitor daily Generalized anxiety disorder-continue home medications, patient irritable Low back pain-continue with home medications Hypertension-continue with home medications With the need for surgical intervention and possible repeat surgical intervention in the acute exacerbation of the COPD with poorly controlled diabetes, patient will be here 2 midnights, inpatient status Urinary Catheter Management Urinary Catheter Management Urethral: Cath placed during this visit: yes Urethral indwelling: No Insertion date: 06/09/23 Insertion time: 23:56
--- NOTE | 2023-06-10 09:55 | SWNOTE1 ---
SW spoke to case management and [place] is [place]. SW to send updates later today.
[2023-06-10 10:05] LABS: Adenovirus NOT DETECTED (NOT DETECTE); Bordetella parapertussis NOT DETECTED (NOT DETECTE); Coronavirus 229E NOT DETECTED (NOT DETECTE); Coronavirus HKU1 NOT DETECTED (NOT DETECTE); Coronavirus NL63 NOT DETECTED (NOT DETECTE); Coronavirus OC43 NOT DETECTED (NOT DETECTE); Human Metapneumovirus NOT DETECTED (NOT DETECTE); Human Rhinovirus/Enterovirus NOT DETECTED (NOT DETECTE); Influenza A NOT DETECTED (NOT DETECTE); Influenza B NOT DETECTED (NOT DETECTE); Mycoplasma pneumoniae NOT DETECTED (NOT DETECTE); Parainfluenza Virus 1 NOT DETECTED (NOT DETECTE); Parainfluenza Virus 2 NOT DETECTED (NOT DETECTE); Parainfluenza Virus 3 NOT DETECTED (NOT DETECTE); Parainfluenza Virus 4 NOT DETECTED (NOT DETECTE); Respiratory Syncytial Virus NOT DETECTED (NOT DETECTE); SARS-CoV-2 NOT DETECTED (NOT DETECTE)
--- NOTE | 2023-06-10 10:35 | ECG_ITS ---
[facility] Test Date: 2023-06-10 Pat Name: RANGEL SANTAMARIA Department: Room: [facility] Gender: Female Hand I Cutter: : 1960 Requested By: [id number] Order Number: [id number] Reading MD: AQUILES FARNSWORTH Measurements Intervals [place] Rate: 93 P: 48 WA: 180 QRS: -4 QRSD: 94 T: 79 QT: 361 QTc: 450 Interpretive Statements SINUS RHYTHM LOW QRS VOLTAGE IN PRECORDIAL LEADS [QRS DEFLECTION < 1.0 mV IN CHEST LEADS] No previous ECG available for comparison Electronically Signed On 06-10-2023 22:25:21 EST by AQUILES FARNSWORTH
[2023-06-10 11:32] LABS: Glucometer 159 mg/dL (74-106)
[2023-06-10] MEDS: IPRATROPIUM/ALBUTEROL SULFATE 3 ML AMPUL.NEB IH ×3 (11:34→23:17)
[2023-06-10] MEDS: 0.9 % SODIUM CHLORIDE 1,000 ML 100 ML IV ×2 (12:01→22:51)
--- NOTE | 2023-06-10 12:45 | SWNOTE1 ---
SW sent updates to [employer]. Updates included face sheet, ER note, nursing notes, vitals, labs, and med list. Pt is there assisted.
--- NOTE | 2023-06-10 12:59 | PM.CN ---
Consult Note: HPI Data of Consult Patient: new to practice Consult date: 06/10/23 Requesting Physician: Harsh Sherman MD Primary Care Provider: [facility] Consult Narrative Reason for consult: right diabetic foot infection Narrative: patient is a 63-year-old female active smoker and medical history of morbid obesity, COPD and uncontrolled type 2 diabetes. She's been in a nursing facility and related that a traffic signal technician/wound care provider wound center said that she has gangrene and recommended that she report to the emergency department. She believe she has had a wound to her right 5th toe for three or four weeks. She denies systemic signs of infection. she relates that within the last week the toe was becoming more black and noticed redness starting to streak up her foot. she relates to chronic swelling both of her lower limbs but denies prior foot ulcer and does not regularly see a sensor specialist. upon presentation to the emergency department laboratories revealed no leukocytosis, anemia (Hb of 10.7), elevated inflammatory markers and hemoglobin A1c of >8. X-rays revealed no marin cortical destruction or soft tissue emphysema however bones are osteopenic. There is also retained hardware from reconstructive surgery performed greater than ten years ago. She was admitted to the hospitalist. cc:: CC: Harsh Sherman MD Review of Systems ROS Status of ROS 10 or more systems reviewed and unremarkable except as noted in history and below Respiratory Reports: cough Musculoskeletal Reports: other (pain noted with attempted range of motion of the right 5th toe) Integumentary/Breast Reports: other (bilateral foot swelling and erythema on dorsal right foot) [facility] Medical History (Updated 06/10/23 @ 15:54 by Han Gregorio DPM) COPD (chronic obstructive pulmonary disease) ?J44.9 - Chronic obstructive pulmonary disease, unspecified (ICD-10) Heart attack ?I21.9 - Acute myocardial infarction, unspecified (ICD-10) High cholesterol ?E78.00 - Pure hypercholesterolemia, unspecified (ICD-10) HTN (hypertension) ?I10 - Essential (primary) hypertension (ICD-10) Diabetic acidosis, type II ?E11.10 - Type 2 diabetes mellitus with ketoacidosis without coma (ICD-10) Social History (Updated 06/09/23 @ 21:20 by Magali Roa) Within the past year, how often did you have a drink containing alcohol: never Score interpretation: A score less than 3 is consistent with normal alcohol consumption. Smoking status: Former smoker Second hand tobacco smoke exposure: No Non-prescribed substance use: denies use Previous occupational history: retired Known occupational exposures/hazards: No Highest level of school completed/degree received: Bachelor's degree Do you want help with school or training: No Are you now , , , , never or living with a partner: don't know In a typical week, how many times do you talk on the telephone with family, friends, or neighbors: never How often do you get together with friends or relatives: never How often do you attend jewish or oriental orthodox services: never Do you belong to any clubs or organizations such as jewish groups unions, Mobile Event Guide or athletic groups, or school groups: no Total score: 0 Score interpretation: A score of less than or equal to 1 indicates the most socially isolated. Little interest or pleasure in doing things: several days Feeling down, depressed, or hopeless: several days Feel stressed/tense/nervous/anxious/difficulty sleeping: decline to answer Life stressors: unknown source of stress Due to disability, difficulty making decisions: No Do you think of yourself as: straight/heterosexual Gender Identity: female Meds Home Medications and Allergies Home Medications Medication Instructions Recorded Confirmed Type albuterol sulfate 2.5 mg/3 mL 2.5 mg inhalation Q4H PRN 05/14/23 06/10/23 History (0.083 %) solution for nebulization shortness of breath or wheezing albuterol sulfate 90 mcg/actuation 2 puff inhalation Q6H PRN 05/14/23 06/09/23 History aerosol inhaler shortness of breath or wheezing aripiprazole 5 mg tablet 10 mg PO DAILY 05/14/23 06/09/23 History atorvastatin 40 mg tablet 40 mg PO DAILY 05/14/23 06/09/23 History clonidine HCl 0.1 mg tablet 0.1 mg PO BID 05/14/23 06/09/23 History clopidogrel 75 mg tablet 75 mg PO DAILY 05/14/23 06/09/23 History cyclobenzaprine 10 mg tablet 10 mg PO TID PRN muscle spasm 05/14/23 06/10/23 History dapagliflozin propanediol 10 mg 10 mg PO DAILY 06/10/23 06/10/23 History tablet (Farxiga) divalproex 500 mg tablet,extended 1,500 mg PO DAILY 06/10/23 06/10/23 History release 24 hr furosemide 40 mg tablet 40 mg PO BID 06/10/23 06/10/23 History gabapentin 100 mg capsule 100 mg PO TID 06/10/23 06/10/23 History isosorbide mononitrate 30 mg 30 mg PO DAILY 06/10/23 06/10/23 History tablet,extended release 24 hr levetiracetam 500 mg tablet 1,000 mg PO BID 06/10/23 06/10/23 History lisinopril 5 mg tablet 5 mg PO DAILY 06/10/23 06/10/23 History metoprolol tartrate 25 mg tablet 25 mg PO BID 06/10/23 06/10/23 History oxycodone-acetaminophen 7.5 mg-325 1 tab PO Q8H PRN pain 06/10/23 06/10/23 History mg tablet pantoprazole 40 mg tablet,delayed 40 mg PO DAILY 06/10/23 06/10/23 History release pioglitazone 30 mg tablet 30 mg PO DAILY 06/10/23 06/10/23 History rivaroxaban 20 mg tablet (Xarelto) 20 mg PO Q24H 06/10/23 06/10/23 History topiramate 50 mg tablet 50 mg PO BID 06/10/23 06/10/23 History venlafaxine 225 mg tablet,extended 225 mg PO QDAY 06/10/23 06/10/23 History release 24 hr Allergies Allergy/AdvReac Type Severity Reaction Status Date / Time aspirin Allergy Severe Verified 06/09/23 22:20 levofloxacin [From Levaquin] Allergy Intermediate Hives Verified 06/09/23 22:20 dextrose Allergy Unknown Verified 06/09/23 22:20 Penicillins Allergy Unknown Verified 06/09/23 22:20 iv contrast Allergy Unknown Uncoded 06/09/23 22:20 Exam Narrative Exam Narrative: skin: Right 5th toe is black and malodorous. Palpation reveals pain and purulence. The skin at the level of the metatarsophalangeal joint from the eschhar and probes to bone. left foot has a pressure wound which is unstageable. No surrounding signs of infection neuro: Absent protective and vibratory sensation Vascular: Faintly palpable pedal pulses. +2 pitting edema bilaterally. Erythema noted from the base of the 5th toe extending to the tarsal metatarsal joint Musculoskeletal: Range of motion of the 5th toe is painful. No fluctuance noted along the 5th ray midfoot. strength and range of motion were deferred secondary to pain Constitutional Vital Signs, click to edit/add: Last Vital Signs Temp 99.6 F 06/10/23 04:54 Pulse 95 H 06/10/23 11:37 Resp 18 06/10/23 04:54 BP 128/74 06/10/23 04:54 Pulse Ox 93 L 06/10/23 11:37 O2 Del Method Room Air 06/10/23 11:37 O2 Flow Rate 4 06/10/23 04:54 Results Labs Labs: Short CBC 06/09/23 06/10/23 Range/Units 17:20 04:39 WBC 8.3 7.8 (4.0-11.0) 10^3/uL Hgb 11.4 L 10.7 L (12.0-16.0) g/dL Hct 35.9 L 34.0 L (36.0-48.0) % Plt Count 228 225 (150-450) 10^3/uL BMP 06/09/23 06/10/23 17:20 04:39 Sodium 140 141 Potassium 3.7 4.0 Chloride 103 103 Carbon Dioxide 32.3 H 29.5 BUN 51.0 H 46.0 H Creatinine 1.17 H 1.17 H Glucose 179 H 194 H Calcium 8.8 8.6 Liver Function 06/09/23 06/10/23 Range/Units 17:20 04:39 Total Bilirubin 0.2 0.2 (0.2-1.0) mg/dL AST 11 L 9 L (15-37) U/L ALT 13 L 14 (14-59) U/L Alkaline Phosphatase 82 71 (46-116) U/L Albumin 2.3 L 2.1 L (3.4-5.0) g/dL ABG ABG results: 06/09/23 21:06 VBG pH 7.405 VBG pCO2 46.9 Assessment and Plan Assessment and Plan (1) Toe necrosis: (2) COPD exacerbation: (3) Acute osteomyelitis of right foot: Assessment and Plan: clinical findings with ESR>60 is consistent with acute osteomyelitis although no cortical disruption is noted on x-ray. Currently on broad-spectrum antibiotics (4) Non-pressure 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: (5) Type 2 diabetes mellitus with diabetic peripheral angiopathy with gangrene: Assessment and Plan: clinical findings consistent with what gangrene. explained to patient that with the ulceration her uncontrolled diabetes and that she has smoked for over forty years is likely contributed to the development of her issue. My concern is that her toe is unsalvageable and infection that could cause her to require major amputation if not dealt with promptly. (6) Type 2 diabetes mellitus with diabetic polyneuropathy: (7) Pressure ulcer, heel, left, unstageable: Assessment and Plan: recommended offloading with elevation and bony boots. Daily dressing changes application of Santyl. Close monitoring Plan patient seen and evaluated and I meet gated the plan with Dr. Sherman Due to the seriousness and limb threatening issue at the patient has I recommended emergent surgical intervention involving 5th toe amputation and possible metatarsal resection if infection has spread more proximally Patient has not eaten since midnight but drinking Diet Coke at bedside. I discussed this with anesthesia who will evaluate the patient prior to surgery. Nonweightbearing right foot Will follow
--- NOTE | 2023-06-10 13:05 | XR_ITS ---
The [address] [address] Patient Name: RANGEL SANTAMARIA MRN: [id number] date: 1960 Sex: F Assigned Patient Location: [place] Current Patient Location: [place] Accession/Order Number: [id number] Exam Date: 06/10/2023 17:50 Report Date: 06/10/2023 18:33 At the request of: NNAMDI ARBOLEDA Procedure: XR foot RT min 3V EXAM: XR foot RT min 3V HISTORY: Post op s/p 5th toe amp COMPARISON: 06/09/2023 TECHNIQUE: 3 view study FINDINGS: The distal aspect of the fifth metatarsal and the fifth toe have been resected. Again, a long cannulated screw bridges the first metatarsal, medial cuneiform, navicular, and talus. Another cannulated screw bridges the posterior subtalar articulation. A linear metallic foreign body is seen in the plantar soft tissues of the second toe. Soft tissue swelling is noted. XR/XR foot RT min 3V IMPRESSION: Postoperative study documenting resection of the distal aspect of the fifth metatarsal and the fifth toe. Electronically authenticated by: Echo BOND Date: 06/10/2023 18:33
[2023-06-10 13:37] LABS: Estimated Average Glucose 192 mg/dL; Glycohemoglobin A1C 8.3 % (4.5-6.2)
[2023-06-10] MEDS: HYDROMORPHONE HCL 0.5 MG/0.5 ML SYRINGE IV (13:40)
[2023-06-10] MEDS: CEFTAZIDIME 2,000 MG in 0.9 % SODIUM CHLORIDE 100 ML 200 MG IV ×2 (13:51→21:49)
--- NOTE | 2023-06-10 15:55 | PM.ORONB ---
Brief Operative Note Date of procedure: 06/10/23 Pre-op diagnosis: right foot acute osteomyellitis, diabetic foot ulcer with bone necrosis Post-op diagnosis: other (right foot acute osteomyelitis, diabetic foot ulcer with bone necrosis, type 2 diabetes with gangrene and peripheral neuropathy) Procedure: PROCEDURE(S) PERFORMED: right 5th toe amputation with incision of 5th metatarsal and excision of compromised bone, application of short leg splint Procedures performed as part of staged procedure INDICATION FOR PROCEDURE: see consultation note for details INTRAOPERATIVE FINDINGS: right 5th toe is ischemic to the level of the metatarsophalangeal joint any erythema streaks to the 5th metatarsal base. Upon amputation of the 5th toe there was marin necrotic tissue and purulence within the metatarsal phalangeal joint. Discolored and soft 5th metatarsal head and neck extending to the distal shaft. Bleeding at the skin edges and deeper tissues was sluggish. PROCEDURE IN DETAIL: Patient was identified in pre op and consent was reviewed. Correct side and site were identified and marked. Pre-op antibiotics were started. Patient was brought to OR suite and place on table in a supine position. General anesthesia was administered. Tourniquet applied. Operative extremity was prepped and draped in usual sterile fashion. Formal time-out was performed and the foot/ankle were elevated for several minutes and tourniquet inflated. An elliptical incision was placed at the base of the 5th toe. Full-thickness incision was taken down to bone to the level of the metatarsal-phalangeal joint revealing marin necrosis and purulence. the toe was amputated and passed the back table. There was involvement of the distal aspect of the 5th metatarsal so the incision was extended proximally exposing the 5th metatarsal shaft. A sagittal saw was used to resect the distal half of the metatarsal however this bone was soft and discolored therefore additional bone was debrided with curettes and rongeur until healthy bone was noted. Tendinous structures were cut proximally. the tourniquet was then deflated and delayed bleeding was noted at the surgical site. Surgical site was irrigated with 3L of normal saline on pulse lavage and inspected for any nonviable tissue which was removed. once all gross infection at then excised and the site irrigated a clean rongeur was used to obtain a specimen from the 5th metatarsal to be sent to microbiology. 1gm of vancomycin powder was placed into the surgical site. the proximal aspect of the incision was closed while the distal aspect was left open with retention sutures. A dry sterile dressing consisting of Xeroform on the incisions followed by 4 x 4 gauze, ABDs, and Kerlix were applied. Multiple layers of cast padding were then applied to ensure all bony prominences were well-padded. A plaster posterior splint was then applied which was held in place by Keegan wraps. Capillary refill time to all digits was evaluated and had appropriate response. POSTOPERATIVE PLAN: transfer to medical surgical unit Nonweightbearing right foot There is concern for involvement of the remaining 5th metatarsal therefore the wound was left partially open. Patient will require a PICC line and IV antibiotics pending cultures for approximately six weeks Will follow Implants: none Anesthesia: MAC and regional Surgeon: Han Gregorio Estimated blood loss (mL): 25 Tourniquet time (min): 7 Pathology: other (5th toe amputation; proximal (clean) culture from 5th metatarsal) Condition: stable Disposition: floor
--- NOTE | 2023-06-10 16:04 | PC.NURSE ---
Patient was mac'd in the OR 1600 ok for discharge from phase 2 from last does of medication.
[2023-06-10 16:16] LABS: Glucometer 121 mg/dL (74-106)
[2023-06-10] MEDS: PROSTAT 15 GM PROTEIN/100 CAL 30 ML LIQUID PACKET PO (21:43)
[2023-06-10] MEDS: JUVEN PACKET 1 PACKET FEED TUBE (21:44)
[2023-06-10] MEDS: ACETAMINOPHEN 500 MG TABLET 1000 MG PO (21:44)
[2023-06-10] MEDS: INSULIN ASPART 300 UNIT/3 ML PEN SUBQ (21:55)
[2023-06-10 21:56] LABS: Glucometer 207 mg/dL (74-106)
--- NOTE | 2023-06-11 00:34 | RESP.RT ---
Placed on 4 LPM NC for HS
[2023-06-11] MEDS: ACETAMINOPHEN 500 MG TABLET 1000 MG PO ×3 (02:53→14:45)
[2023-06-11] MEDS: OXYCODONE HCL 15 MG TABLET PO ×2 (02:57→10:58)
[2023-06-11 04:13] VITALS: PULSE 87; RESP 15; O2SAT 93
[2023-06-11] MEDS: IPRATROPIUM/ALBUTEROL SULFATE 3 ML AMPUL.NEB IH ×2 (04:13→10:56)
[2023-06-11 04:15] VITALS: BP 147/70; PULSE 87; RESP 16; TEMP 36.6; O2SAT 93
[2023-06-11 04:29] VITALS: PULSE 90; RESP 15; O2SAT 97
[2023-06-11] MEDS: VANCOMYCIN HCL 2,000 MG in 0.9 % SODIUM CHLORIDE 500 ML 250 MG IV (05:10)
[2023-06-11] MEDS: CEFTAZIDIME 2,000 MG in 0.9 % SODIUM CHLORIDE 100 ML 200 MG IV (05:10)
[2023-06-11 06:01] LABS: Basophils Percent Auto 0.5 % (0.2-2.0); Eosinophils Absolute Auto 0.2 10^3/uL (0.0-0.7); Eosinophils Percent Auto 1.9 % (0.9-7.0); Hemoglobin 10.4 g/dL (12.0-16.0); Immature Granulocytes Abs Auto 0.29 10^3/uL (0.00-0.03); Immature Granulocytes Pct Auto 3.5 % (0.0-0.5); Lymphocytes Absolute Auto 2.1 10^3/uL (1.2-3.8); Mean Corpuscular HGB Conc 31.5 g/dL (29.9-35.2); Mean Corpuscular Hemoglobin 29.9 pg (26.7-34.0); Mean Corpuscular Volume 94.8 fL (81.0-99.0); Mean Platelet Volume 9.7 fL (9.5-13.5); Monocytes Absolute Auto 0.6 10^3/uL (0.3-0.8); Monocytes Percent Auto 6.9 % (1.7-12.0); Neutrophils Absolute Auto 5.1 10^3/uL (1.4-6.5); Neutrophils Percent Auto 62.2 % (43.0-75.0); Platelet Count 216 10^3/uL (150-450); Red Blood Count 3.48 10^6/uL (4.20-5.40); Red Cell Distribution Width 14.6 % (11.0-15.0); White Blood Count 8.2 10^3/uL (4.0-11.0)
[2023-06-11 06:20] LABS: Erythrocyte Sedimentation Rate 78 mm/hr (<=30)
[2023-06-11 06:27] LABS: Alanine Aminotransferase 13 U/L (14-59); Albumin Globulin Ratio 0.4; Alkaline Phosphatase 78 U/L (46-116); Anion Gap 8.7; Aspartate Amino Transferase 11 U/L (15-37); BUN Creatinine Ratio 38.2; Bilirubin Total 0.2 mg/dL (0.2-1.0); Calcium 8.5 mg/dL (8.5-10.1); Carbon Dioxide 27.9 mmol/L (21.0-32.0); Chloride 108 mmol/L (98-107); Estimated GFR (African America >60 (>=60); Estimated GFR (Non-African Ame >60 (>=60); Globulin 4.5 g/dL; Glucose 197 mg/dL (74-106); Potassium 3.6 mmol/L (3.5-5.1); Sodium 141 mmol/L (136-145); Total Protein 6.5 g/dL (6.4-8.2)
[2023-06-11 06:31] LABS: C Reactive Protein 1.43 mg/dL (<=0.50)
[2023-06-11] MEDS: ATORVASTATIN CALCIUM 40 MG TABLET PO (09:34)
[2023-06-11] MEDS: CLOPIDOGREL BISULFATE 75 MG TABLET PO (09:34)
[2023-06-11] MEDS: ENOXAPARIN SODIUM 40 MG/0.4 ML SYRINGE SUBQ (09:34)
[2023-06-11] MEDS: JUVEN PACKET 1 PACKET FEED TUBE (09:34)
[2023-06-11] MEDS: CHOLECALCIFEROL (VITAMIN D3) 125 MCG/5000 UNIT TABLET PO (09:35)
--- NOTE | 2023-06-11 10:16 | SWNOTE1 ---
ELAINE informed by physician pt will need IV Vanco at [place], pt had PICC line placed. Pt would be a precert to return with IV antibiotic as she is residential and will now be skilled with IV antibiotic. ELAINE called [facility], they will have director funds development call SW back. ELAINE has message out to Clay as well who is the central intake person at [facility].
[2023-06-11 11:01] VITALS: PULSE 90; O2SAT 94
[2023-06-11 11:25] LABS: Glucometer 270 mg/dL (74-106)
--- NOTE | 2023-06-11 11:53 | CM.NOTE ---
Rounds made with Dr. Wells. Potential plan to return to [place] today with IV antibiotics.
--- NOTE | 2023-06-11 11:53 | SWNOTE1 ---
ELAINE called and spoke with Urvashi at [facility] about pt. She will need Vnaco IV for 6 weeks. ELAINE asked if she needed to be precert. She stated since it's once a day it will not be skillable and no precert required. ELAINE set up [facility] for 3:00. ELAINE sent dc med rec to [facility]. ELAINE then received phone call from Urvashi and the employment case manager at the building said it does need to be precerted to return as her authorization for insurance has . ELAINE expressed to Urvashi all the discharge orders are in and transport is set. She is shelter and no authorization is required. ELAINE advised that pt will likely come back, SW to check with doctor and director of case mangement.
--- NOTE | 2023-06-11 11:54 | P.DS_ITS ---
DS: Providers Provider Date of admission: 06/09/23 18:39 Primary care physician: [facility] Consults: 06/09/23 19:09 Consult to Podiatry Routine Consulting Provider: Han Gregorio Reason for consultation: Necrosis R 5th Toe 06/09/23 19:15 Consult to Pharmacy Routine Consulting Provider: Harsh Sherman Reason for consultation: Vanco dose Has provider been notified: No 06/10/23 14:36 Physical Therapy Eval and Treat Routine Reason for consultation: gait training Has provider been notified: No 06/10/23 16:30 Consult to PICC Line RN Routine Consulting Provider: Harsh Sherman Reason for consultation: joint terminal attack controller ab - over 4 weeks DS: Diagnosis Discharge Diagnosis (1) Acute osteomyelitis of right foot: (2) Diabetic foot ulcer with osteomyelitis: (3) Non-pressure 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: (4) Type 2 diabetes mellitus with diabetic peripheral angiopathy with gangrene: (5) Type 2 diabetes mellitus with hyperglycemia: (6) Pressure ulcer, heel, left, unstageable: (7) Type 2 diabetes mellitus with diabetic polyneuropathy: (8) HTN (hypertension): (9) COPD exacerbation: (10) CAD (coronary artery disease): DS: Summary Hospital Course Hospital Course: Reason for admission: See ER note and H&P for details. 63 y/o female to ER with wound on right 5th toe. History of neuropathy and resides in [facility]. C/o redness and discoloration to foot and toe for several weeks. Seen by wound care and directed to ER. WBC normal and afebrile. Discussed with podiatry and admitted. Hospital course: Started fortaz and vacomycin. Podiatry consulted and concerned of osteomyelitis due to elevated labs and wound appearance. Taken to OR for amputation of 5th toe and wound left open. Concerned of infection in metatarsal bones and may need staged procedure. Recommended 6 weeks IV antibiotics and PICC placed. Patient did well after surgery. Pain tolerable with medication. Podiatry recommended discharge on IV vancomycin while awaiting OR cultures. Transferred back to [facility] in stable condition. Resume medication as directed. Time Spent with Patient Time attestation: Total time spent providing and/or coordinating discharge services: Exam Constitutional Vital Signs, click to edit/add: Last Vital Signs Temp 97.8 F 06/11/23 04:15 Pulse 90 06/11/23 11:01 Resp 15 06/11/23 04:29 BP 147/70 H 06/11/23 04:15 Pulse Ox 94 L 06/11/23 11:01 O2 Del Method Room Air 06/11/23 11:01 O2 Flow Rate 4 06/11/23 04:29 Documenting provider has reviewed patient's vital signs: yes Common normals: no apparent distress, oriented x3 and alert HENMT Common normals: normocephalic Eye Common normals: PERRL and EOMs intact bilaterally Respiratory Common normals: normal respiratory effort and clear to auscultation bilaterally Cardio Common normals: regular rate, regular rhythm, no gallops, no murmurs and no rub GI Common normals: Normal to inspection, nondistended, normoactive bowel sounds present and non-tender Extremity Common normals: no pedal edema DS: Data Data Completed and Pending Labs on day of discharge: Labs from last 24 hours 06/11/23 06/11/23 06/10/23 11:23 05:14 21:54 WBC 8.2 RBC 3.48 L Hgb 10.4 L Hct 33.0 L MCV 94.8 MCH 29.9 MCHC 31.5 RDW 14.6 Plt Count 216 MPV 9.7 Neut % (Auto) 62.2 Lymph % (Auto) 25.0 [place] % (Auto) 6.9 Eos % (Auto) 1.9 Baso % (Auto) 0.5 Neut # (Auto) 5.1 Lymph # (Auto) 2.1 [place] # (Auto) 0.6 Eos # (Auto) 0.2 Baso # (Auto) 0.0 Abs Immat Gran (auto) 0.29 H Imm/Tot Granulo (auto) 3.5 H ESR 78 H Sodium 141 Potassium 3.6 Chloride 108 H Carbon Dioxide 27.9 Anion Gap 8.7 BUN 34.0 H Creatinine 0.89 Est GFR ( Amer) >60 Est GFR (Non-Af Amer) >60 BUN/Creatinine Ratio 38.2 Glucose 197 H Estimat Average Glucose Hemoglobin A1c Calcium 8.5 Total Bilirubin 0.2 AST 11 L ALT 13 L Alkaline Phosphatase 78 C-Reactive Protein 1.43 H Total Protein 6.5 Albumin 2.0 L Globulin 4.5 Albumin/Globulin Ratio 0.4 POC Glucose 270 H 207 H 06/10/23 06/10/23 16:15 04:39 WBC RBC Hgb Hct MCV MCH MCHC RDW Plt Count MPV Neut % (Auto) Lymph % (Auto) [place] % (Auto) Eos % (Auto) Baso % (Auto) Neut # (Auto) Lymph # (Auto) [place] # (Auto) Eos # (Auto) Baso # (Auto) Abs Immat Gran (auto) Imm/Tot Granulo (auto) ESR Sodium Potassium Chloride Carbon Dioxide Anion Gap BUN Creatinine Est GFR ( Amer) Est GFR (Non-Af Amer) BUN/Creatinine Ratio Glucose Estimat Average Glucose 192 Hemoglobin A1c 8.3 H Calcium Total Bilirubin AST ALT Alkaline Phosphatase C-Reactive Protein Total Protein Albumin Globulin Albumin/Globulin Ratio POC Glucose 121 H Discharge Plan Discharge Disposition: Xfer LT Condition: Good Discharge Medications: New Vancomycin HCl 2000 MG 0.9 % Sodium Chloride [Sodium Chloride 0.9% 500 ml] 500 ML 250 mls/hr IV Q24H Ordered By: Fer Wells MD Last Taken: 06/11/23 05:10 250 mls/hr Continued albuterol sulfate 90 mcg/actuation HFA aerosol inhaler 2 puff INHALATION Q6H PRN (Reason: shortness of breath or wheezing) albuterol sulfate 2.5 mg /3 mL (0.083 %) solution for nebulization 2.5 mg inhalation Q4H PRN (Reason: shortness of breath or wheezing) aripiprazole 5 mg tablet 10 mg PO DAILY atorvastatin 40 mg tablet 40 mg PO DAILY clonidine HCl 0.1 mg tablet 0.1 mg PO BID clopidogrel 75 mg tablet 75 mg PO DAILY cyclobenzaprine 10 mg tablet 10 mg PO TID PRN (Reason: muscle spasm) dapagliflozin propanediol [Farxiga] 10 mg tablet 10 mg PO DAILY divalproex 500 mg tablet extended release 24 hr 1,500 mg PO DAILY furosemide 40 mg tablet 40 mg PO BID gabapentin 100 mg capsule 100 mg PO TID isosorbide mononitrate 30 mg tablet extended release 24 hr 30 mg PO DAILY levetiracetam 500 mg tablet 1,000 mg PO BID lisinopril 5 mg tablet 5 mg PO DAILY metoprolol tartrate 25 mg tablet 25 mg PO BID oxycodone-acetaminophen 7.5-325 mg tablet 1 tab PO Q8H PRN (Reason: pain) pantoprazole 40 mg tablet,delayed release (DR/EC) 40 mg PO DAILY pioglitazone 30 mg tablet 30 mg PO DAILY Xarelto 20 mg tablet 20 mg PO Q24H topiramate 50 mg tablet 50 mg PO BID venlafaxine 225 mg tablet extended release 24hr 225 mg PO QDAY Roll Bucker/Aeronautical Engineering Technologist Instructions: Discharge to [facility] term Forms: Portal Instructions Follow Up Appointments: @ 1:30pm with [facility] [address] [place] [address]
[2023-06-11] MEDS: INSULIN ASPART 300 UNIT/3 ML PEN SUBQ (12:05)
--- NOTE | 2023-06-11 14:51 | PM.PN ---
Progress Note: Subjective Subjective Interval history: patient sleeping bed comfortably. Relates she full breakfast without problem. she denies pain. She inquires about the cause of her wound and infection, specifically asking if mold or other things at her nursing facility could have contributed to her problem Exam Narrative Exam Narrative: splint is clean dry and intact. Brisk capillary refill to toes one through four. pain on squeeze. Constitutional Vital Signs, click to edit/add: Last Vital Signs Temp 97.8 F 06/11/23 04:15 Pulse 90 06/11/23 11:01 Resp 15 06/11/23 04:29 BP 147/70 H 06/11/23 04:15 Pulse Ox 94 L 06/11/23 11:01 O2 Del Method Room Air 06/11/23 11:01 O2 Flow Rate 4 06/11/23 04:29 Progress Note: Objective Labs Labs: Short CBC 06/11/23 Range/Units 05:14 WBC 8.2 (4.0-11.0) 10^3/uL Hgb 10.4 L (12.0-16.0) g/dL Hct 33.0 L (36.0-48.0) % Plt Count 216 (150-450) 10^3/uL BMP 06/11/23 05:14 Sodium 141 Potassium 3.6 Chloride 108 H Carbon Dioxide 27.9 BUN 34.0 H Creatinine 0.89 Glucose 197 H Calcium 8.5 Liver Function 06/11/23 Range/Units 05:14 Total Bilirubin 0.2 (0.2-1.0) mg/dL AST 11 L (15-37) U/L ALT 13 L (14-59) U/L Alkaline Phosphatase 78 (46-116) U/L Albumin 2.0 L (3.4-5.0) g/dL Progress Note: A&P Assessment and Plan (1) Acute osteomyelitis of right foot: Assessment and Plan: patient has PICC line and will receive antibiotics for approximately six weeks. Antibiotic will likely be changed once cultures return (2) Diabetic foot ulcer with osteomyelitis: (3) Non-pressure 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: (4) Type 2 diabetes mellitus with diabetic peripheral angiopathy with gangrene: (5) Type 2 diabetes mellitus with hyperglycemia: (6) Pressure ulcer, heel, left, unstageable: Assessment and Plan: continue offloading and close monitoring. Will follow as an outpatient (7) Type 2 diabetes mellitus with diabetic polyneuropathy: (8) HTN (hypertension): (9) COPD exacerbation: (10) CAD (coronary artery disease): Plan patient is okay for discharge once medically cleared by the hospitalist Continue pressure relief on the right surgical site as well as the left heel Follow-up in the wound center within one week Regarding her concern that a nursing facility caused this problem I find very unlikely. I related to her that her uncontrolled diabetes, obesity, smoking and poor self-care are more likely to lead to her severe diabetic foot infection. I spoke to patient multiple times about smoking cessation and today when I discussed this further she related that she could not wait to be discharged so she could smoke. I further emphasized the importance of her involvement in her medical management as she remains at high risk for major amputation. Urinary Catheter Management Urinary Catheter Management Urethral: Cath placed during this visit: yes, but has since been removed by the nurse Urethral indwelling: No Insertion date: 06/09/23 Insertion time: 23:56 Removal date: 06/11/23 Removal time: 14:48 16FR KULKARNI: Cath placed during this visit: yes, but has since been removed by the nurse Removal date: 06/11/23 Removal time: 14:47
== END 2023-06-11 15:15 | DRG 314 ==
LOC: ER 17:56 → MS 06-10 06:31
PROVIDERS: Family Medicine; Nurse Practitioner Acute Care; Physician Assistant; Podiatrist Foot & Ankle Surgery; Admitting Provider Family Medicine; Emergency Provider Emergency Medicine; Visit Provider Family Medicine
PROC: 0Y6X0Z0 Detachment at Right 5th Toe, Complete, Open Approach (ICD-10-PCS; principal; 2023-06-10 13:40)
DX: E11.52 Type 2 diabetes mellitus with diabetic peripheral angiopathy with gangrene (principal); I96 Gangrene, not elsewhere classified; E11.69 Type 2 diabetes mellitus with other specified complication; Z68.43 Body mass index [BMI] 50.0-59.9, adult; M86.171 Other acute osteomyelitis, right ankle and foot; J44.1 Chronic obstructive pulmonary disease with (acute) exacerbation; E11.621 Type 2 diabetes mellitus with foot ulcer; L97.514 Non-pressure 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; Z79.899 Other long term (current) drug therapy; I25.2 Old myocardial infarction; E11.22 Type 2 diabetes mellitus with diabetic chronic kidney disease; Z88.0 Allergy status to penicillin; I12.9 Hypertensive chronic kidney disease with stage 1 through stage 4 chronic kidney disease, or unspecified chronic kidney disease; E66.2 Morbid (severe) obesity with alveolar hypoventilation; D50.9 Iron deficiency anemia, unspecified; N18.2 Chronic kidney disease, stage 2 (mild); E11.65 Type 2 diabetes mellitus with hyperglycemia; L89.620 Pressure ulcer of left heel, unstageable; E11.42 Type 2 diabetes mellitus with diabetic polyneuropathy; I25.10 Atherosclerotic heart disease of native coronary artery without angina pectoris; Z79.01 Long term (current) use of anticoagulants; Z79.84 Long term (current) use of oral hypoglycemic drugs; E78.00 Pure hypercholesterolemia, unspecified; F41.1 Generalized anxiety disorder; M54.50 Low back pain, unspecified; Z87.891 Personal history of nicotine dependence
CPT/HCPCS: 0202U; 36415; 36569; 36592; 51702; 73630; 80053; 82140; 82800; 82805; 82948; 83036; 83605; 85025; 85652; 86140; 87070; 87102; 87116; 87205; 87206; 87804; 88305; 88311; 93005; 94640; 94667; 94668; 94761; 96361; 96365; 96366; 96367; 96368; 96372; 96375; 99285; 99999; C1887; J0665; J0696; J0713; J1170; J1650; J2704; J3010; J3370

== ENCOUNTER 2023-06-15 15:49 | Outpatient (OUT) | payer MEDICAID, SELFPAY | END 2023-06-15 15:50 | disposition home or self-care (01) | LOC: WC 15:49 | PROVIDERS: Visit Provider Physician Assistant | DX: E11.621 Type 2 diabetes mellitus with foot ulcer (principal); L97.522 Non-pressure chronic ulcer of other part of left foot with fat layer exposed; L89.620 Pressure ulcer of left heel, unstageable; L97.514 Non-pressure 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 | CPT/HCPCS: 11042; G0463 ==

== ENCOUNTER 2023-06-23 14:01 | Outpatient (OUT) | payer MEDICAID, SELFPAY | END 2023-06-23 14:02 | disposition home or self-care (01) | LOC: WC 14:01 | PROVIDERS: Visit Provider Podiatrist Foot & Ankle Surgery | DX: E11.621 Type 2 diabetes mellitus with foot ulcer (principal); L97.522 Non-pressure chronic ulcer of other part of left foot with fat layer exposed; L89.620 Pressure ulcer of left heel, unstageable; L97.514 Non-pressure 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 | CPT/HCPCS: G0463 ==

== ENCOUNTER 2023-06-30 15:32 | Outpatient (OUT) | payer MEDICAID, SELFPAY | END 2023-06-30 15:33 | disposition home or self-care (01) | LOC: WC 15:32 | PROVIDERS: Visit Provider Podiatrist Foot & Ankle Surgery | DX: E11.621 Type 2 diabetes mellitus with foot ulcer (principal); L97.514 Non-pressure 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 | CPT/HCPCS: A6213; G0463 ==

== ENCOUNTER 2023-07-03 13:14 | Outpatient (REF) | payer MEDICAID, SELFPAY ==
[2023-07-03 14:21] LABS: Vancomycin Trough 21.5 ug/mL (5.0-20.0)
== END 2023-07-03 13:15 | disposition home or self-care (01) ==
LOC: LAB 13:14
PROVIDERS: Visit Provider Family Medicine
DX: Z79.899 Other long term (current) drug therapy (principal)
CPT/HCPCS: 36415; 80202

== ENCOUNTER 2023-07-07 11:20 | Outpatient (OUT) | payer MEDICAID, SELFPAY ==
--- NOTE | 2023-07-07 | XR_ITS ---
The [address] [address] Patient Name: RANGEL SANTAMARIA MRN: [id number] date: 1960 Sex: F Assigned Patient Location: Current Patient Location: Accession/Order Number: [id number] Exam Date: 07/07/2023 11:22 Report Date: 07/07/2023 12:04 At the request of: YOGESH YEAGER Procedure: XR foot LT min 3V PROCEDURE: XR foot LT min 3V COMPARISON: None HISTORY: LEFT FOOT PAIN FINDINGS: BONES:A long screw is identified extending distally to proximally through the first metatarsal, medial cuneiform, navicular talus into the calcaneus, there is mechanical failure of the screw at the level of the navicular bone best seen on frontal image 2. Posterior subtalar fusion with 2 cannulated screws. Plate and screws transfix the navicular and talus along the medial foot. Moderate diffuse degenerative changes with joint space narrowing marginal osteophyte formation. Remote resection base of the first proximal phalanx. Lucency through the lateral base of the first distal phalanx on image 1 is not seen on the additional projections and likely artifact Fusion SOFT TISSUES:Negative. No visible soft tissue swelling. EFFUSION:None visible. OTHER: Negative. XR/XR foot LT min 3V IMPRESSION: Mechanical failure of a fixation screw in the medial foot detailed above Electronically authenticated by: SHMUEL AC Date: 07/07/2023 12:04
== END 2023-07-07 11:21 | disposition home or self-care (01) ==
LOC: WC 11:20
PROVIDERS: Visit Provider Physician Assistant
DX: M25.572 Pain in left ankle and joints of left foot (principal); E11.621 Type 2 diabetes mellitus with foot ulcer; L97.514 Non-pressure 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; L60.1 Onycholysis
CPT/HCPCS: 29515; 73630; G0463

== ENCOUNTER 2023-07-09 01:06 | Emergency (ER) | payer MEDICAID, SELFPAY ==
[2023-07-09 01:08] VITALS: BP 181/73; PULSE 110; RESP 20; TEMP 37; O2SAT 94; BMI 47.0
--- NOTE | 2023-07-09 01:22 | CT_ITS ---
[address] [address] Patient Name: RANGEL SANTAMARIA MRN: [id number] date: 1960 Sex: F Assigned Patient Location: ER Current Patient Location: ER Accession/Order Number: [id number] Exam Date: 07/09/2023 02:00 Report Date: 07/09/2023 03:31 At the request of: DARIANA BARAHONA Procedure: CT abdomen pelvis wo con EXAM: CT abdomen pelvis wo con HISTORY: right sided abd pain COMPARISON: None. TECHNIQUE: Noncontrast axial CT images through the abdomen and pelvis were obtained with coronal and sagittal reformats. Dose reduction techniques were achieved by using automated exposure control and/or adjustment of mA and/or kV according to patient size and/or use of iterative reconstruction technique. FINDINGS: There is mild bibasilar atelectasis. There is coronary artery disease. Fluid is seen in the distal esophagus. Abdomen: Please note that the sensitivity for detection of focal lesions or vascular disease is markedly reduced without intravenous contrast. The liver is enlarged measuring up to 20.8 cm at the right midclavicular line. The spleen is enlarged measuring up to 15.3 cm. There is no intra or extrahepatic biliary duct dilatation. The gallbladder is surgically absent. There is a 2 mm nonobstructive left renal calculus. There is mild right perinephric and perirenal fat stranding. The pancreas, adrenal glands, and bowel loops, including the appendix, are unremarkable. There is no mesenteric or retroperitoneal lymphadenopathy. Suspected injection sites are seen within the lower left ventral abdominal subcutaneous tissues. Pelvis: The bladder demonstrates wall thickening. The rectum is unremarkable. There is no iliac or inguinal lymphadenopathy. The uterus is present. The ovaries appear within normal limits by CT. There is mild atherosclerotic disease. Bone windows show no aggressive osseous lesions. There is nonspecific sclerosis about the sacroiliac joints. CT/CT abdomen pelvis wo con IMPRESSION: 1. Mild right perinephric and periureteral fat stranding. This could be secondary to a recently passed calculus or to an ascending urinary tract infection. There is also urinary bladder wall thickening. Please correlate with the patient's urinalysis. 2. Fluid in the distal esophagus suggestive of gastroesophageal reflux. 3. Hepatosplenomegaly. 4. Status post cholecystectomy. 5. Nonobstructive left renal calculus. 6. Normal appendix. Electronically authenticated by: Han STEIN Date: 07/09/2023 03:31
--- NOTE | 2023-07-09 01:23 | ED_ITS ---
HPI - Abdominal Pain General Chief Complaint: Abdominal Pain Stated Complaint: OTHER Time Seen by Provider: 07/09/23 01:12 Source: patient Mode of arrival: ambulance Limitations: no limitations History of Present Illness HPI narrative: Patient developed right sided pain around 4pm yesterday. She also vomited twice since the pain began. She was sent by the [place] to [place] ED for evaluation after she complained this morning that the pain worsened. She has been getting IV antibiotics through her PICC line after being admitted and surgically treated for osteomyelitis back in May. She denied any diarrhea, urinary symptoms or pain with BMs. She had cholecystectomy but still has her appendix. Related Data Home Medications Medication Instructions Recorded Confirmed albuterol sulfate 2.5 mg/3 mL 2.5 mg inhalation Q4H PRN 05/14/23 07/09/23 (0.083 %) solution for nebulization shortness of breath or wheezing albuterol sulfate 90 mcg/actuation 2 puff inhalation Q6H PRN 05/14/23 07/09/23 aerosol inhaler shortness of breath or wheezing aripiprazole 5 mg tablet 10 mg PO DAILY 05/14/23 07/09/23 atorvastatin 40 mg tablet 40 mg PO DAILY 05/14/23 07/09/23 clonidine HCl 0.1 mg tablet 0.1 mg PO BID 05/14/23 07/09/23 clopidogrel 75 mg tablet 75 mg PO DAILY 05/14/23 07/09/23 cyclobenzaprine 10 mg tablet 5 mg PO TID PRN muscle spasm 05/14/23 07/09/23 dapagliflozin propanediol 10 mg 10 mg PO DAILY 06/10/23 07/09/23 tablet (Farxiga) divalproex 500 mg tablet,extended 1,000 mg PO DAILY 06/10/23 07/09/23 release 24 hr furosemide 40 mg tablet 40 mg PO BID 06/10/23 07/09/23 gabapentin 100 mg capsule 100 mg PO TID 06/10/23 07/09/23 isosorbide mononitrate 30 mg 30 mg PO DAILY 06/10/23 07/09/23 tablet,extended release 24 hr levetiracetam 500 mg tablet 1,000 mg PO BID 06/10/23 07/09/23 lisinopril 5 mg tablet 5 mg PO DAILY 06/10/23 07/09/23 metoprolol tartrate 25 mg tablet 25 mg PO BID 06/10/23 07/09/23 pantoprazole 40 mg tablet,delayed 40 mg PO DAILY 06/10/23 07/09/23 release pioglitazone 30 mg tablet 30 mg PO DAILY 06/10/23 07/09/23 rivaroxaban 20 mg tablet (Xarelto) 20 mg PO Q24H 06/10/23 07/09/23 topiramate 50 mg tablet 50 mg PO BID 06/10/23 07/09/23 venlafaxine 225 mg tablet,extended 225 mg PO QDAY 06/10/23 07/09/23 release 24 hr dulaglutide 3 mg/0.5 mL 3 mg subcut DAILY 07/09/23 07/09/23 [facility] hydrocodone 5 mg-acetaminophen 325 1 tab PO Q8H PRN pain 07/09/23 07/09/23 mg tablet insulin glargine 100 unit/mL (3 60 unit subcut DAILY 07/09/23 07/09/23 mL) subcutaneous pen (Lantus Solostar U-100 Insulin) insulin glargine 100 unit/mL unit subcut 07/09/23 subcutaneous solution (Lantus U-100 Insulin) Previous Rx's Medication Instructions Recorded Vancomycin HCl 2,000 mg 250 mls/hr IV Q24H 06/11/23 cephalexin 500 mg capsule 500 mg PO TID 7 days #21 caps 07/09/23 Allergies Allergy/AdvReac Type Severity Reaction Status Date / Time aspirin Allergy Severe Verified 07/09/23 01:11 levofloxacin [From Levaquin] Allergy Intermediate Hives Verified 07/09/23 01:11 dextrose Allergy Unknown Verified 07/09/23 01:11 Penicillins Allergy Unknown Verified 07/09/23 01:11 iv contrast Allergy Unknown Uncoded 07/09/23 01:11 [facility] Medical History (Updated 07/09/23 @ 03:45 by Wyatt Hawk) Pressure ulcer, heel, left, unstageable ?L89.620 - Pressure ulcer of left heel, unstageable (ICD-10) Type 2 diabetes mellitus with diabetic polyneuropathy ?E11.42 - Type 2 diabetes mellitus with diabetic polyneuropathy (ICD-10) Type 2 diabetes mellitus with diabetic peripheral angiopathy with gangrene ?E11.52 - Type 2 diabetes mellitus with diabetic peripheral angiopathy with gangrene (ICD-10) Non-pressure 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 ?L97.514 - Non-pressure 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 (ICD-10) COPD exacerbation ?J44.1 - Chronic obstructive pulmonary disease with (acute) exacerbation (ICD-10) Toe necrosis ?I96 - Gangrene, not elsewhere classified (ICD-10) COPD (chronic obstructive pulmonary disease) ?J44.9 - Chronic obstructive pulmonary disease, unspecified (ICD-10) Heart attack ?I21.9 - Acute myocardial infarction, unspecified (ICD-10) High cholesterol ?E78.00 - Pure hypercholesterolemia, unspecified (ICD-10) Diabetic acidosis, type II ?E11.10 - Type 2 diabetes mellitus with ketoacidosis without coma (ICD-10) Social History (Updated 06/09/23 @ 21:20 by Magali Roa) Within the past year, how often did you have a drink containing alcohol: never Score interpretation: A score less than 3 is consistent with normal alcohol consumption. Smoking status: Current every day smoker Second hand tobacco smoke exposure: No Non-prescribed substance use: denies use Previous occupational history: retired Known occupational exposures/hazards: No Highest level of school completed/degree received: Bachelor's degree Do you want help with school or training: No Are you now , , , , never or living with a partner: don't know In a typical week, how many times do you talk on the telephone with family, friends, or neighbors: never How often do you get together with friends or relatives: never How often do you attend tenriism or samaritan services: never Do you belong to any clubs or organizations such as tenriism groups unions, fraternal or athletic groups, or school groups: no Total score: 0 Score interpretation: A score of less than or equal to 1 indicates the most socially isolated. Little interest or pleasure in doing things: several days Feeling down, depressed, or hopeless: several days Feel stressed/tense/nervous/anxious/difficulty sleeping: decline to answer Life stressors: unknown source of stress Due to disability, difficulty making decisions: No Do you think of yourself as: straight/heterosexual Gender Identity: female Exam Narrative Exam Narrative: Nurses notes and vital signs reviewed and patient is not hypoxic. Afebrile General: Well-appearing and in no apparent distress. Skin: Warm, dry, no pallor noted. No rash to abdomen. Eye: Pupils are equal, round and EOMI. No scleral icterus. Cardiovascular: tachycardia. Respiratory: No accessory muscle use or respiratory distress. Lungs are clear to auscultation, no wheezing, rales or rhonchi GI: Abdomen is soft, non-distended. Normal bowel sounds. Morbidly obese so unable to appreciate any masses. Diffuse right abdominal tenderness to palpation. No rebound, guarding, or rigidity noted. Neurological: A&O x4. No cranial nerve dysfunction observed. No truncal ataxia. Moves all extremities. Sensation intact. Psychiatric: Cooperative and interactive. Normal mood and affect. Constitutional Vital Signs, click to edit/add: Last Vital Signs Temp 98.6 F 07/09/23 01:08 Pulse 110 H 07/09/23 01:08 Resp 20 07/09/23 01:08 BP 181/73 H 07/09/23 01:08 Pulse Ox 94 L 07/09/23 01:08 O2 Del Method Room Air 07/09/23 01:08 Course Vital Signs Vital signs: Vital Signs Temperature 98.6 F 07/09/23 01:08 Pulse Rate 110 H 07/09/23 01:08 Respiratory Rate 20 07/09/23 01:08 Blood Pressure 181/73 H 07/09/23 01:08 Pulse Oximetry 94 L 07/09/23 01:08 Oxygen Delivery Method Room Air 07/09/23 01:08 Temperature 98.6 F 07/09/23 01:08 Pulse Rate 110 H 07/09/23 01:08 Respiratory Rate 20 07/09/23 01:08 Blood Pressure 181/73 H 07/09/23 01:08 Pulse Oximetry 94 L 07/09/23 01:08 Oxygen Delivery Method Room Air 07/09/23 01:08 MDM - Abdominal Pain MDM Narrative Medical decision making narrative: The patient was ordered to receive normal saline IV fluid, IV Zofran and IV Dilaudid through her PICC line. She was ordered to undergo CT scanning of the abdomen pelvis without contrast. Patient urinated while in the bed - no urine could be obtained for UA. CT showed mild right perinephric fat stranding - UTI versus recently passed calculus. No calculus seen now. Patient received IV Rocephin and then was discharged back to the [place] with prescription for Keflex 500mg PO TID for presumed UTI. She felt better after getting IV Dilaudid for pain. Lab Data Attestation: I reviewed the patient's lab results. Labs: Lab Results 07/09/23 Range/Units 01:49 WBC 17.1 H (4.0-11.0) 10^3/uL RBC 4.64 (4.20-5.40) 10^6/uL Hgb 13.8 (12.0-16.0) g/dL Hct 42.5 (36.0-48.0) % MCV 91.6 (81.0-99.0) fL MCH 29.7 (26.7-34.0) pg MCHC 32.5 (29.9-35.2) g/dL RDW 14.8 (11.0-15.0) % Plt Count 251 (150-450) 10^3/uL MPV 9.6 (9.5-13.5) fL Seg Neuts % (Manual) 84.0 Band Neutrophils % 1.0 (0-5) % Lymphocytes % (Manual) 6.0 L (20.5-60.0) % Atypical Lymphs % (Man) 3.0 % Monocytes % (Manual) 6.0 (1.7-12.0) % Eosinophils % (Manual) 0.0 L (0.9-7.0) % Basophils % (Manual) 0.0 L (0.2-2.0) % Neutrophils # (Manual) 14.36 H (1.4-6.5) 10^3/uL Band Neutrophils # 0.2 (0.0-0.3) 10^3/uL Lymphocytes # (Manual) 1.02 L (1.20-3.80) 10^3/uL Abs Atypical Lymphs Man 0.51 Monocytes # (Manual) 1.02 H (0.30-0.80) 10^3/uL Eosinophils # (Manual) 0.00 (0.00-0.70) 10^3/uL Basophils # (Manual) 0.00 (0.00-0.10) 10^3/uL Sodium 138 (136-145) mmol/L Potassium 3.9 (3.5-5.1) mmol/L Chloride 100 (98-107) mmol/L Carbon Dioxide 26.2 (21.0-32.0) mmol/L Anion Gap 15.7 BUN 47.0 H (7.0-18.0) mg/dL Creatinine 1.13 H (0.55-1.02) mg/dL Est GFR ( Amer) 59 L (>=60) Est GFR (Non-Af Amer) 49 L (>=60) BUN/Creatinine Ratio 41.6 Glucose 183 H (74-106) mg/dL Calcium 9.8 (8.5-10.1) mg/dL Total Bilirubin 0.3 (0.2-1.0) mg/dL AST 12 L (15-37) U/L ALT 16 (14-59) U/L Alkaline Phosphatase 103 (46-116) U/L Total Protein 8.3 H (6.4-8.2) g/dL Albumin 2.8 L (3.4-5.0) g/dL Globulin 5.5 g/dL Albumin/Globulin Ratio 0.5 Lipase 55.0 (16.0-77.0) U/L Imaging Data CT scan - abdomen: Radiologist's impression: ITS Impressions Abdomen/Pelvis CT 07/09/23 01:22 IMPRESSION: 1. Mild right perinephric and periureteral fat stranding. This could be secondary to a recently passed calculus or to an ascending urinary tract infection. There is also urinary bladder wall thickening. Please correlate with the patient's urinalysis. 2. Fluid in the distal esophagus suggestive of gastroesophageal reflux. 3. Hepatosplenomegaly. 4. Status post cholecystectomy. 5. Nonobstructive left renal calculus. 6. Normal appendix. Electronically authenticated by: Han STEIN Date: 07/09/2023 03:31 Discharge Plan Discharge Stand Alone Forms: Portal Instructions Chief Complaint: Abdominal Pain Clinical Impression: Abdominal pain, UTI (urinary tract infection) Patient Disposition: Home, Self-Care Time of Disposition Decision: 03:45 Prescriptions / Home Meds: New cephalexin 500 mg capsule 500 mg PO TID 7 Days Qty: 21 0RF No Action albuterol sulfate 90 mcg/actuation HFA aerosol inhaler 2 puff INHALATION Q6H PRN (Reason: shortness of breath or wheezing) albuterol sulfate 2.5 mg /3 mL (0.083 %) solution for nebulization 2.5 mg inhalation Q4H PRN (Reason: shortness of breath or wheezing) aripiprazole 5 mg tablet 10 mg PO DAILY atorvastatin 40 mg tablet 40 mg PO DAILY clonidine HCl 0.1 mg tablet 0.1 mg PO BID clopidogrel 75 mg tablet 75 mg PO DAILY cyclobenzaprine 10 mg tablet 5 mg PO TID PRN (Reason: muscle spasm) dapagliflozin propanediol [Farxiga] 10 mg tablet 10 mg PO DAILY divalproex 500 mg tablet extended release 24 hr 1,000 mg PO DAILY furosemide 40 mg tablet 40 mg PO BID gabapentin 100 mg capsule 100 mg PO TID isosorbide mononitrate 30 mg tablet extended release 24 hr 30 mg PO DAILY levetiracetam 500 mg tablet 1,000 mg PO BID lisinopril 5 mg tablet 5 mg PO DAILY metoprolol tartrate 25 mg tablet 25 mg PO BID pantoprazole 40 mg tablet,delayed release (DR/EC) 40 mg PO DAILY pioglitazone 30 mg tablet 30 mg PO DAILY Xarelto 20 mg tablet 20 mg PO Q24H topiramate 50 mg tablet 50 mg PO BID venlafaxine 225 mg tablet extended release 24hr 225 mg PO QDAY Vancomycin HCl 2000 MG 0.9 % Sodium Chloride [Sodium Chloride 0.9% 500 ml] 500 ML 250 mls/hr IV Q24H Ordered By: Fer Wells MD Last Taken: Unknown Trulicity 3 mg/0.5 mL pen injector 3 mg SUBCUT DAILY hydrocodone-acetaminophen 5-325 mg tablet 1 tab PO Q8H PRN (Reason: pain) insulin glargine [Lantus Solostar U-100 Insulin] 100 unit/mL (3 mL) insulin pen 60 unit SUBCUT DAILY insulin glargine [Lantus U-100 Insulin] 100 unit/mL solution SUBCUT Instructions: Urinary Tract Infection in Women (ED), Abdominal Pain (ED) Referrals: [facility] [Primary Care Provider] - 1 week
[2023-07-09] MEDS: ONDANSETRON PF 4 MG/2 ML VIAL IV (01:50)
[2023-07-09] MEDS: 0.9 % SODIUM CHLORIDE 1,000 ML 999 ML IV (01:50)
[2023-07-09] MEDS: HYDROMORPHONE HCL 1 MG/ML CARTRIDGE IVP (01:51)
[2023-07-09 01:57] LABS: Hematocrit 42.5 % (36.0-48.0); Hemoglobin 13.8 g/dL (12.0-16.0); Mean Corpuscular HGB Conc 32.5 g/dL (29.9-35.2); Mean Corpuscular Hemoglobin 29.7 pg (26.7-34.0); Mean Corpuscular Volume 91.6 fL (81.0-99.0); Mean Platelet Volume 9.6 fL (9.5-13.5); Platelet Count 251 10^3/uL (150-450); Red Blood Count 4.64 10^6/uL (4.20-5.40); Red Cell Distribution Width 14.8 % (11.0-15.0); White Blood Count 17.1 10^3/uL (4.0-11.0)
--- OUTSIDE RECORDS SUMMARY | 2023-07-09 02:09 | XMS_ITS | CCD ---
Author Name Unknown Address [address] [facility] [address] [place], [place] [id number] Organization [facility] Care Team Providers Care Steel Cutter Name Role Phone Unavailable Primary Care [...] Coronary arteriosclerosis; Translations: [Atherosclerotic heart disease of [place] coronary artery without angina pectoris] Onset: 04-26-2023 [...] 97.59 [degF] Carlin Furlong DO Work Phone: [facility] 05-05-2023 22:06-0500 Body weight 179.44 kg Cariln Furlong DO Work Phone: [facility] 05-05-2023 22:06-0500 Diastolic blood pressure 74 mm[Hg] Carlin Furlong DO Work Phone: [facility] 05-05-2023 22:06-0500 Heart rate 88 /min Carlin Furlong DO Work Phone: [facility] 05-05-2023 22:06-0500 Respiratory rate 18 /min Carlin Furlong DO [facility]: [facility] 05-05-2023 22:06-0500 SaO2% (BldA) [Mass fraction] 95 % Carlin Furlong DO Work Phone: [facility] 05-05-2023 22:06-0500 Systolic blood pressure 136 mm[Hg] Carlin Furlong DO Work Phone: [facility] 04-29-2023 16:46-0500 Diastolic blood pressure 61 mm[Hg] Carlin Furlong DO Work Phone: [facility] 04-29-2023 16:46-0500 Heart rate 70 /min Carlin Furlong DO Work Phone: [facility] 04-29-2023 16:46-0500 Systolic blood pressure 127 mm[Hg] Carlin Furlong DO Work Phone: [facility] 04-26-2023 17:11-0500 Body temperature 97.2 [degF] Carlin Furlong DO Work Phone: [facility] 04-26-2023 17:11-0500 Body weight 117.48 kg Carlin Furlong DO Work Phone: [facility] 04-26-2023 17:11-0500 Diastolic blood pressure 72 mm[Hg] Carlin Furlong DO Work Phone: [facility] 04-26-2023 17:11-0500 Heart rate 91 /min Carlin Furlong DO Work Phone: [facility] 04-26-2023 17:11-0500 Respiratory rate 20 /min Carlin Furlong DO Work Phone: [facility] 04-26-2023 17:11-0500 SaO2% (BldA) [Mass fraction] 97 % Carlin Furlong DO Work Phone: [facility] 04-26-2023 17:11-0500 Systolic blood pressure 129 mm[Hg] Carlin Furlong DO Work Phone: [facility] 04-26-2023 16:10-0500 Body temperature 98.1 [degF] Carlin Furlong DO Work Phone: [facility] 04-26-2023 16:10-0500 Diastolic blood pressure 70 mm[Hg] Carlin Furlong DO Work Phone: [facility] 04-26-2023 16:10-0500 Heart rate 86 /min Carlin Furlong DO Work Phone: [facility] 04-26-2023 16:10-0500 Respiratory rate 18 /min Carlin Furlong DO Work Phone: [facility] 04-26-2023 16:10-0500 SaO2% (BldA) [Mass fraction] 97 % Calrin Furlong DO Work Phone: [facility] 04-26-2023 16:10-0500 Systolic blood pressure 122 mm[Hg] Carlin Borrego DO Work Phone: [facility] Encounters Encounter Date Encounter Type [...] Acute on chronic miya stolic heart failure ([facility]) (Primary Dx); Chronic obstructive pulmonary disease, unspecified COPD type ([facility]); Other abnormalities of gait and mobility; [...] on above: Coronary artery dise ase involving [place] heart without angina pectoris, unspecified vessel or lesion type (Primary Dx); Diabetic polyneuropathy associated with type 2 diabetes mellitus ([facility]); Chronic kidney disease, unspecified CKD stage; Essential hypertension, benign; Primary pulmonary hypertension ([facility]); Chronic obstructive pulmonary disease, unspecified COPD type ([facility]); Patient's noncompliance with other medical treatment and regimen due to unspecified reason; Other seizures ([facility]); Hyperlipidemia, unspecified hyperlipidemia type; Morbid obesity ([facility]); Depressive disorder; Anxiety disorder, unspecified type; Cigarette smoker; Open wound of lesser toe of left foot without damage to nail, subsequent encounter; Acute on chronic diastolic heart failure ([facility]); Other abnormalities of gait and mobility; Muscle weakness (generalized); History of WA (myocardial infarction); History of atrial fibrillation; Other chronic pain Plan of Treatment Date Care Activity Detail Author Start: 10-13-2024 Tobacco Counseling Tobacco Counseling [facility] Start: 12-26-2022 Influenza vaccination Influenza Vaccine [facility] Start: 2011 Administration of varicella zoster vaccine Zoster (Shingles) Vaccine (1 of 2) [facility] Start: 1982 Screening for malignant neoplasm of cervix Pap Smear [facility] Start: 1980 DTaP,Tdap and Td Vaccines (1 - Tdap) DTaP,Tdap and Td Vaccines (1 - Tdap) [facility] Start: 1979 Adult BMI Screening Adult BMI Screening [facility] Start: 1979 Diabetic foot examination Diabetic Foot Exam [facility] Start: 1973 Depression Screening Depression Screening [facility] Start: 1973 Tobacco Screening Tobacco Screening [facility] Start: 1961 Glaucoma screening Diabetic Ophthalmology Exam [facility] Social History Date Type Detail Facility Start: 04-26-2023 Tobacco smoking stat [facility] Smokes tobacco daily [facility] History of tobacco use Cigarette Smoker [facility] Start: 04-26-2023 End: 05-05-2023 Cigarettes smoked current (pack per day) - Reported 0.3 [facility] Start: 04-26-2023 Tobacco use and exposure Smokeless tobacco non-user [facility] Start: 04-26-2023 End: 05-05-2023 Alcohol intake Current drinker of alcohol (finding) [facility] Start: 04-26-2023 End: 05-05-2023 Tobacco use panel [facility] Start: 1960 Sex Assigned At Not on file [facility] Tobacco smoking stat [facility] Tobacco smoking consumption unknown [facility] Clinical Notes 04-14-2023 to 05-05-2023 Carlin Borrego, DO - 05/05/2023 10:06 PM Deepti Borrego, DO - 04/29/2023 4:33 PM Deepti Borrego, DO - 04/28/2023 11:59 PM Deepti Borrego, DO - 04/21/2023 11:59 PM EST Note Date & Type Note Facility 05-05-2023 History of Present illness Narrative Patient Name: Linda Sullivan Date of : 1960 Date of Service: 05/05/2023 Facility: [facility] Type of Visit: Skilled Visit Subjective Linda Sullivan is a 63 y.o. female [facility]. Laurie is in therapy but will be discharged soon. She wanted to see me because she hasn't had any ear drops. I ordered them last week. Her ear feels plugged. She requires max encouragement to participate. She refuses to ambulate. She is hoping to get into a jail center in [facility]. Her x-rays showed moderate degenerative disc [...] Carlin Borrego DO documented in this encounter [facility] 04-29-2023 History of Present illness Narrative Addendum Will check x-ray of cervical and lumbar spine. Nurses report she is using oxycodone 10 mg about twice a day. Will decrease oxycodone-acetaminophen 7.5-325 1 Q8hrs prn pain. Attempted to check [facility] but they were having technical difficulties. Unable to retrieve report. documented in this encounter [facility] 04-28-2023 History of Present illness Narrative Patient Name: Linda Sullivan Date of : 1960 Date of Service: 04/28/2023 Facility: [facility] Type of Visit: Skilled Visit Subjective Linda Sullivan is a 63 y.o. female [facility]. Laurie is in therapy for increasing strength, endurance and functional mobility. She requires max encouragement for participation. She says she has chronic pain in her back-neck and low back mostly but also thoracic spine. She used to see Dr. Lu at [facility] but was dismissed because she missed an [...] 7 days. Refer to pain management at [facility]. Continue therapy to reach MMI. Continue other medications as before. ELECTRONICALLY SIGNED BY: Carlin Borrego DO documented in this encounter [facility] 04-21-2023 History of Present illness Narrative Patient Name: Linda Sullivan Date of : 1960 Date of Service: 04/21/2023 Facility: [facility] Type of Visit: Skilled Visit Subjective Linda Sullivan is a 63 y.o. female [facility]. Staff and patient [...] Carlin Borrego, DO documented in this encounter [facility] 04-14-2023 History of Present illness Narrative Patient Name: Linda Sullivan Date of : 1960 Date of Service: 04/26/2023 Facility: [facility] Type of Visit: Admission H&P Subjective Linda Sullivan is a 63 y.o. female [facility] for [facility]. Laurie presents to [facility] from [facility] where she was admitted for hyperglycemia and chest pain rule out WA. She was in another facility last month and was discharged to home but did not have any pen needles so she wasn't giving herself any insulin for a week or so. She then presented to [facility] ED and was admitted. It doesn't look like she had an WA at this last visit. She had an WA in 2015. She has a stent in 2016 and another in 2019 while living in [place]. She has chronic pain and takes oxycodone [...] / Plan 1. Coronary artery disease involving [place] heart without angina pectoris, unspecified vessel or lesion type 2. Diabetic polyneuropathy associated with type 2 diabetes mellitus ([facility]) 3. Chronic kidney disease, unspecified CKD stage 4. Essential hypertension, benign 5. Primary pulmonary hypertension ([facility]) 6. Chronic obstructive pulmonary disease, unspecified COPD type ([facility]) 7. Patient's noncompliance with other medical treatment and regimen due to unspecified reason 8. Other seizures ([facility]) 9. Hyperlipidemia, unspecified hyperlipidemia type 10. Morbid obesity ([facility]) 11. Depressive disorder 12. Anxiety disorder, unspecified type 13. Cigarette smoker 14. Open wound of lesser toe of left foot without damage to nail, subsequent encounter 15. Acute on chronic diastolic heart failure ([facility]) 16. Other abnormalities of gait and mobility 17. Muscle weakness (generalized) 18. History of WA (myocardial infarction) 19. History of atrial fibrillation 20. Other chronic pain Admit to [facility] for therapies. Continue medications from the hospital [...] living with a friend in a hotel. security services manager will see her. Full code ELECTRONICALLY SIGNED BY: Carlin Borrego DO documented in this encounter [facility] Evaluation note Diagnosis Coronary artery disease involving [place] heart without angina pectoris, unspecified vessel or lesion type- Primary Diabetic polyneuropathy associated with type 2 diabetes mellitus ([facility]) Chronic kidney disease, unspecified CKD stage Essential hypertension, benign Primary pulmonary hypertension ([facility]) Primary pulmonary hypertension Chronic obstructive pulmonary disease, unspecified COPD type ([facility]) Patient's noncompliance with other medical treatment and regimen due to unspecified reason Other seizures ([facility]) Hyperlipidemia, unspecified hyperlipidemia type Morbid obesity ([facility]) Morbid obesity Depressive disorder Depressive disorder, not elsewhere classified Anxiety disorder, unspecified type Cigarette smoker Tobacco use disorder Open wound of lesser toe of left foot without damage to nail, subsequent encounter Acute on chronic diastolic heart failure ([facility]) Acute on chronic diastolic heart failure Other abnormalities of gait and mobility Muscle weakness (generalized) History of WA (myocardial infarction) Old myocardial infarction History of atrial fibrillation Personal history of other diseases of circulatory system Other chronic pain [facility] Diagnosis Diarrhea, unspecified type- Primary Cigarette smoker Tobacco use disorder Open wound of lesser toe of left foot without damage to nail, subsequent encounter Other abnormalities of gait and mobility Muscle weakness (generalized) documented [facility] this [facility]* Diagnosis Acute on chronic diastolic heart failure ([facility])- Primary Acute on chronic diastolic heart failure Chronic obstructive pulmonary disease, unspecified COPD type ([facility]) Other abnormalities of gait and mobility Chronic neck pain Cervicalgia Chronic low back pain without sciatica, unspecified back pain laterality documented [facility] Diagnosis Excessive cerumen in left ear canal- Primary Other abnormalities of gait and mobility Muscle weakness (generalized) Multilevel degenerative disc disease documented in this encounter [facility] SystemInstructionsNot on filedocumented in this encounter [facility] SystemInstructionsNot on filedocumented in this encounter [facility] SystemInstructionsNot on filedocumented in this encounter [facility] SystemInstructionsNot on filedocumented in this encounter [facility] SystemInstructionsNot on filedocumented in this encounter [facility] Additional Source Comments FOR RECORDS [...] BE BASED ON THE PRIMARY CLINICAL RECORDS. [facility] [employer] [facility]. provides no warranty or guarantee of the accuracy or completeness of information in this document.
[2023-07-09 02:15] LABS: Alanine Aminotransferase 16 U/L (14-59); Albumin Globulin Ratio 0.5; Albumin Level 2.8 g/dL (3.4-5.0); Alkaline Phosphatase 103 U/L (46-116); Anion Gap 15.7; Aspartate Amino Transferase 12 U/L (15-37); BUN Creatinine Ratio 41.6; Bilirubin Total 0.3 mg/dL (0.2-1.0); Calcium 9.8 mg/dL (8.5-10.1); Carbon Dioxide 26.2 mmol/L (21.0-32.0); Chloride 100 mmol/L (98-107); Estimated GFR (African America 59 (>=60); Estimated GFR (Non-African Ame 49 (>=60); Globulin 5.5 g/dL; Glucose 183 mg/dL (74-106); Potassium 3.9 mmol/L (3.5-5.1); Sodium 138 mmol/L (136-145); Total Protein 8.3 g/dL (6.4-8.2)
[2023-07-09 02:29] LABS: Band Neutrophils Absolute 0.2 10^3/uL (0.0-0.3); Segmented Neut Absolute Manual 14.36 10^3/uL (1.4-6.5)
[2023-07-09 02:30] LABS: Atypical Lymphocytes Abs Man 0.51; Lymphocytes Absolute Manual 1.02 10^3/uL (1.20-3.80); Monocytes Absolute Manual 1.02 10^3/uL (0.30-0.80)
[2023-07-09] MEDS: CEFTRIAXONE 1,000 MG in 0.9 % SODIUM CHLORIDE 50 ML 100 MG IV (04:05)
[2023-07-09 04:43] VITALS: BP 160/90; PULSE 110; O2SAT 94
== END 2023-07-09 05:00 | disposition home or self-care (01) ==
PROVIDERS: Emergency Provider Emergency Medicine
DX: N39.0 Urinary tract infection, site not specified (principal); R10.9 Unspecified abdominal pain; E11.42 Type 2 diabetes mellitus with diabetic polyneuropathy; J44.9 Chronic obstructive pulmonary disease, unspecified; E78.00 Pure hypercholesterolemia, unspecified; I25.2 Old myocardial infarction; F17.210 Nicotine dependence, cigarettes, uncomplicated; Z90.49 Acquired absence of other specified parts of digestive tract; Z79.899 Other long term (current) drug therapy; Z79.01 Long term (current) use of anticoagulants; Z79.85 Long-term (current) use of injectable non-insulin antidiabetic drugs; Z79.4 Long term (current) use of insulin
CPT/HCPCS: 36415; 74176; 80053; 83690; 85007; 85027; 96361; 96365; 96375; 99284; J1170

== ENCOUNTER 2023-07-10 15:05 | Outpatient (REF) | payer MEDICAID, SELFPAY ==
[2023-07-10 15:54] LABS: Estimated GFR (African America 38 (>=60); Estimated GFR (Non-African Ame 31 (>=60); Vancomycin Trough 18.4 ug/mL (5.0-20.0)
== END 2023-07-10 15:06 | disposition home or self-care (01) ==
LOC: LAB 15:05
PROVIDERS: Visit Provider Family Medicine
DX: Z79.2 Long term (current) use of antibiotics (principal)
CPT/HCPCS: 36415; 80202; 82565

== ENCOUNTER 2023-07-14 10:40 | Outpatient (OUT) | payer MEDICAID, SELFPAY ==
--- OUTSIDE RECORDS SUMMARY | 2023-07-14 10:55 | XMS_ITS | CCD ---
Author Organization [facility] Care Team Providers Care Car Checker Name Role Phone Unavailable Primary Care Provider [...] Coronary arteriosclerosis; Translations: [Atherosclerotic heart disease of [place] coronary artery without angina pectoris] Onset: 04-26-2023 [...] 97.59 [degF] Carlin Furlong DO Work Phone: [facility] 05-05-2023 22:06-0500 Body weight 179.44 kg Carlin Furlong DO Work Phone: [facility] 05-05-2023 22:06-0500 Diastolic blood pressure 74 mm[Hg] Carlin Furlong DO Work Phone: [facility] 05-05-2023 22:06-0500 Heart rate 88 /min Carlin Furlong DO Work Phone: [facility] 05-05-2023 22:06-0500 Respiratory rate 18 /min [employer] DO Work Phone: [facility] 05-05-2023 22:06-0500 SaO2% (BldA) [Mass fraction] 95 % Calrin Furlong DO Work Phone: [facility] 05-05-2023 22:06-0500 Systolic blood pressure 136 mm[Hg] Carlin Furlong DO Work Phone: [facility] 04-29-2023 16:46-0500 Diastolic blood pressure 61 mm[Hg] Carlin Furlong DO Work Phone: [facility] 04-29-2023 16:46-0500 Heart rate 70 /min Carlin Furlong DO Work Phone: [facility] 04-29-2023 16:46-0500 Systolic blood pressure 127 mm[Hg] Carlin Furlong DO Work Phone: [facility] 04-26-2023 17:11-0500 Body temperature 97.2 [degF] Carlin Furlong DO Work Phone: [facility] [employer] [facility] [facility] 04-26-2023 17:11-0500 Body weight 117.48 kg Carlin Furlong DO Work Phone: [facility] 04-26-2023 17:11-0500 Diastolic blood pressure 72 mm[Hg] Carlin Furlong DO Work Phone: [facility] 04-26-2023 17:11-0500 Heart rate 91 /min Carlin Furlong DO Work Phone: [facility] 04-26-2023 17:11-0500 Respiratory rate 20 /min Carlin Furlong DO Work Phone: [facility] 04-26-2023 17:11-0500 SaO2% (BldA) [Mass fraction] 97 % Carlin Furlong DO Work Phone: [facility] 04-26-2023 17:11-0500 Systolic blood pressure 129 mm[Hg] Carlin Furlong DO Work Phone: [facility] 04-26-2023 16:10-0500 Body temperature 98.1 [degF] Carlin Furlong DO Work Phone: [facility] 04-26-2023 16:10-0500 Diastolic blood pressure 70 mm[Hg] Carlin Furlong DO Work Phone: [facility] 04-26-2023 16:10-0500 Heart rate 86 /min Carlin Furlong DO Work Phone: [facility] 04-26-2023 16:10-0500 Respiratory rate 18 /min Carlin Furlong DO Work Phone: [facility] 04-26-2023 16:10-0500 SaO2% (BldA) [Mass fraction] 97 % Carlin Furlong DO Work Phone: [facility] 04-26-2023 16:10-0500 Systolic blood pressure 122 mm[Hg] Carlin Furlong DO Work Phone: [facility] Encounters Encounter Date Encounter Type Care Provider Facility Start: 05-05-2023 ambulatory Carlin villasenor DO Work Phone: [facility] Comment on above: Excessive cerumen in left ear canal (Primary Dx); Other abnormalities of gait and mobility; Muscle weakness (generalized); Multilevel degenerative disc disease Start: 04-29-2023 Orders Only Carlin villasenor DO Work Phone: [facility] Start: 04-28-2023 ambulatory Carlin villasenor DO Work Phone: [facility] Comment on above: Acute on chronic miya stolic heart failure ([facility]) (Primary Dx); Chronic obstructive pulmonary disease, unspecified COPD type ([facility]); Other abnormalities of gait and mobility; Chronic neck pain; Chronic low back pain without sciatica, unspecified back pain laterality Start: 04-21-2023 ambulatory Carlin villasenor DO Work Phone: [facility] Comment [...] on above: Coronary artery dise ase involving [place] heart without angina pectoris, unspecified vessel or lesion type (Primary Dx); Diabetic polyneuropathy associated with type 2 diabetes mellitus ([facility]); Chronic kidney disease, unspecified CKD stage; Essential hypertension, benign; Primary pulmonary hypertension ([facility]); Chronic obstructive pulmonary disease, unspecified COPD type ([facility]); Patient's noncompliance with other medical treatment and regimen due to unspecified reason; Other seizures ([facility]); Hyperlipidemia, unspecified hyperlipidemia type; Morbid obesity ([facility]); Depressive disorder; Anxiety disorder, unspecified type; Cigarette smoker; Open wound of lesser toe of left foot without damage to nail, subsequent encounter; Acute on chronic diastolic heart failure (CMS-HCC); Other abnormalities of gait and mobility; Muscle weakness (generalized); History of IN (myocardial infarction); History of atrial fibrillation; Other chronic pain Plan of Treatment Date Care Activity Detail Author Start: 10-13-2024 Tobacco Counseling Tobacco Counseling [facility] Start: 12-26-2022 Influenza vaccination Influenza Vaccine [facility] Start: 2011 Administration of varicella zoster vaccine Zoster (Shingles) Vaccine (1 of 2) [facility] Start: 1982 Screening for malignant neoplasm of cervix Pap Smear [facility] Start: 1980 DTaP,Tdap and Td Vaccines (1 - Tdap) DTaP,Tdap and Td Vaccines (1 - Tdap) [facility] Start: 1979 Adult BMI Screening Adult BMI Screening [facility] Start: 1979 Diabetic foot examination Diabetic Foot Exam [facility] Start: 1973 Depression Screening Depression Screening [facility] Start: 1973 Tobacco Screening Tobacco Screening [facility] Start: 1961 Glaucoma screening Diabetic Ophthalmology Exam [facility] Social History Date Type Detail Facility Start: 04-26-2023 Tobacco smoking stat [facility] Smokes tobacco daily [facility] History of tobacco use Cigarette Smoker P [facility] Start: 04-26-2023 End: 05-05-2023 Cigarettes smoked current (pack per day) - Reported 0.3 [facility] Start: 04-26-2023 Tobacco use and exposure Smokeless tobacco non-user [facility] Start: 04-26-2023 End: 05-05-2023 Alcohol intake Current drinker of alcohol (finding) [facility] Start: 04-26-2023 End: 05-05-2023 Tobacco use panel [facility] Start: 1960 Sex Assigned At Not on file P [facility] Tobacco smoking stat [facility] Tobacco smoking consumption unknown [facility] Clinical Notes 04-14-2023 to 05-05-2023 Carlin Borrego DO - 05/05/2023 10:06 PM Deepti Borrego, DO - 04/29/2023 4:33 PM Deepti Borrego, DO - 04/28/2023 11:59 PM Deepti Borrego, DO - 04/21/2023 11:59 PM EST Note Date & Type Note Facility 05-05-2023 History of Present illness Narrative Patient Name: Linda Sullivan Date of : 1960 Date of Service: 05/05/2023 Facility: [facility] Type of Visit: Skilled Visit Subjective Linda Sullivan is a 63 y.o. female seen today at shelter facility for therapy visit. Laurie is in therapy but will be discharged soon. She wanted to see me because she hasn't had any ear drops. I ordered them last week. Her ear feels plugged. She requires max encouragement to participate. She refuses to ambulate. She is hoping to get into a assisted center in [facility]. Her x-rays showed moderate degenerative disc [...] and are medically necessary. ELECTRONICALLY SIGNED BY: Cralin Borrego DO documented in this encounter [facility] 04-29-2023 History of Present illness Narrative Addendum Will check x-ray of cervical and lumbar spine. Nurses report she is using oxycodone 10 mg about twice a day. Will decrease oxycodone-acetaminophen 7.5-325 1 Q8hrs prn pain. Attempted to check [facility] but they were having technical difficulties. Unable to retrieve report. documented in this encounter [facility] 04-28-2023 History of Present illness Narrative Patient Name: Linda Sullivan Date of : 1960 Date of Service: 04/28/2023 Facility: [facility] Type of Visit: Skilled Visit Subjective Linda Sullivan is a 63 y.o. female seen today at shelter facility for therapy visit. Laurie is in therapy for increasing strength, endurance and functional mobility. She requires max encouragement for participation. She says she has chronic pain in her back-neck and low back mostly but also thoracic spine. She used to see Dr. Lu at [facility] but was dismissed because she missed [...] 7 days. Refer to pain management at [facility]. Continue therapy to reach MMI. Continue other medications as before. ELECTRONICALLY SIGNED BY: Carlin Borrego DO documented in this encounter [facility] 04-21-2023 History of Present illness Narrative Patient Name: Linda Sullivan Date of : 1960 Date of Service: 04/21/2023 Facility: [facility] Type of Visit: Skilled Visit Subjective Linda Sullivan is a 63 y.o. female seen today at shelter facility for therapy visit. Staff and patient [...] orders as directed. ELECTRONICALLY SIGNED BY: Carlin Borrego DO documented in this encounter [facility] 04-14-2023 History of Present illness Narrative Patient Name: Linda Sullivan Date of : 1960 Date of Service: 04/26/2023 Facility: [facility] Type of Visit: Admission H&P Subjective Linda Sullivan is a 63 y.o. female seen today at shelter facility for admission. Laurie presents to [facility] from [facility] where she was admitted for hyperglycemia and chest pain rule out IN. She was in another facility last month and was discharged to home but did not have any pen needles so she wasn't giving herself any insulin for a week or so. She then presented to [facility] ED and was admitted. It doesn't look like she had an IN at this last visit. She had an IN in 2015. She has a stent in 2016 and another in 2019 while living in [place]. She has chronic pain and takes oxycodone [...] / Plan 1. Coronary artery disease involving [place] heart without angina pectoris, unspecified vessel or lesion type 2. Diabetic polyneuropathy associated with type 2 diabetes mellitus ([facility]) 3. Chronic kidney disease, unspecified CKD stage 4. Essential hypertension, benign 5. Primary pulmonary hypertension ([facility]) 6. Chronic obstructive pulmonary disease, unspecified COPD type ([facility]) 7. Patient's noncompliance with other medical treatment and regimen due to unspecified reason 8. Other seizures ([facility]) 9. Hyperlipidemia, unspecified hyperlipidemia type 10. Morbid obesity ([facility]) 11. Depressive disorder 12. Anxiety disorder, unspecified type 13. Cigarette smoker 14. Open wound of lesser toe of left foot without damage to nail, subsequent encounter 15. Acute on chronic diastolic heart failure ([facility]) 16. Other abnormalities of gait and mobility 17. Muscle weakness (generalized) 18. History of IN (myocardial infarction) 19. History of atrial fibrillation 20. Other chronic pain Admit to [facility] for therapies. Continue medications from the [...] living with a friend in a hotel. early childhood services coordinator will see her. Full code ELECTRONICALLY SIGNED BY: Carlin Borrego DO documented in this encounter [facility] Evaluation note Diagnosis Coronary artery disease involving [place] heart without angina pectoris, unspecified vessel or lesion type- Primary Diabetic polyneuropathy associated with type 2 diabetes mellitus ([facility]) Chronic kidney disease, unspecified CKD stage Essential hypertension, benign Primary pulmonary hypertension ([facility]) Primary pulmonary hypertension Chronic obstructive pulmonary disease, unspecified COPD type ([facility]) Patient's noncompliance with other medical treatment and regimen due to unspecified reason Other seizures ([facility]) Hyperlipidemia, unspecified hyperlipidemia type Morbid obesity ([facility]) Morbid obesity Depressive disorder Depressive disorder, not elsewhere classified Anxiety disorder, unspecified type Cigarette smoker Tobacco use disorder Open wound of lesser toe of left foot without damage to nail, subsequent encounter Acute on chronic diastolic heart failure (CMS-HCC) Acute on chronic diastolic heart failure Other abnormalities of gait and mobility Muscle weakness (generalized) History of IN (myocardial infarction) Old myocardial infarction History of atrial fibrillation Personal history of other diseases of circulatory system Other chronic pain [facility] Diagnosis Diarrhea, unspecified type- Primary Cigarette smoker Tobacco use disorder Open wound of lesser toe of left foot without damage to nail, subsequent encounter Other abnormalities of gait and mobility Muscle weakness (generalized) documented [facility]* Diagnosis Acute on chronic diastolic heart failure ([facility])- Primary Acute on chronic diastolic heart failure Chronic obstructive pulmonary disease, unspecified COPD type ([facility]) Other abnormalities of gait and mobility Chronic neck pain Cervicalgia Chronic low back pain without sciatica, unspecified back pain laterality documented in this encounter [facility]* Diagnosis Excessive cerumen in left ear canal- Primary Other abnormalities of gait and mobility Muscle weakness (generalized) Multilevel degenerative disc disease documented in this encounter [facility]ructions[facility] on filedocumented in this encounter [facility]Not on filedocumented in this encounter [facility] SystemInstructionsNot on filedocumented in this encounter [facility] SystemInstructionsNot on filedocumented in this encounter [facility] [place] SystemInstructionsNot on filedocumented in this encounter [facility] Additional Source Comments FOR RECORDS PERTAINING TO [...] BE BASED ON THE PRIMARY CLINICAL RECORDS. [facility]. provides no warranty or guarantee of the accuracy or completeness of information in this document.
== END 2023-07-14 10:41 | disposition home or self-care (01) ==
LOC: WC 10:40
PROVIDERS: Visit Provider Podiatrist Foot & Ankle Surgery
DX: E11.621 Type 2 diabetes mellitus with foot ulcer (principal); L97.514 Non-pressure 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
CPT/HCPCS: 11042; A6213

== ENCOUNTER 2023-07-17 13:37 | Outpatient (REF) | payer MEDICAID, SELFPAY ==
--- OUTSIDE RECORDS SUMMARY | 2023-07-17 13:43 | XMS_ITS | CCD ---
Author Organization [facility] Care Team Providers Care Maintainer Central Office Name Role Phone Unavailable Primary Care Provider [...] Coronary arteriosclerosis; Translations: [Atherosclerotic heart disease of rincon coronary artery without angina pectoris] Onset: 04-26-2023 [...] 97.59 [degF] Carlin Furlong DO Work Phone: [facility] 05-05-2023 22:06-0500 Body weight 179.44 kg Carlin Furlong DO Work Phone: [facility] 05-05-2023 22:06-0500 Diastolic blood pressure 74 mm[Hg] Carlin Furlong DO Work Phone: [facility] 05-05-2023 22:06-0500 Heart rate 88 /min Carlin Furlong DO Work Phone: [facility] 05-05-2023 22:06-0500 Respiratory rate 18 /min Carlin [employer] DO Work Phone: [facility] 05-05-2023 22:06-0500 SaO2% (BldA) [Mass fraction] 95 % Carlin Furlong DO Work Phone: [facility] 05-05-2023 22:06-0500 Systolic blood pressure 136 mm[Hg] Carlin Furlong DO Work Phone: [facility] 04-29-2023 16:46-0500 Diastolic blood pressure 61 mm[Hg] Carlin Furlong DO Work Phone: [facility] 04-29-2023 16:46-0500 Heart rate 70 /min Carlin Furlong DO Work Phone: [facility] 04-29-2023 16:46-0500 Systolic blood pressure 127 mm[Hg] Carlin Furlong DO Work Phone: [facility] 04-26-2023 17:11-0500 Body temperature 97.2 [degF] Calrin Furlong DO Work Phone: [facility] 04-26-2023 17:11-0500 Body weight 117.48 kg Carlin Furlong DO Work Phone: [facility] 04-26-2023 17:11-0500 Diastolic blood pressure 72 mm[Hg] Carlin Furlong DO Work Phone: [facility] 04-26-2023 17:11-0500 Heart rate 91 /min Carlin Furlong DO Work Phone: [facility] 04-26-2023 17:11-0500 Respiratory rate 20 /min Carlin Furlong DO Work Phone: [facility] 04-26-2023 17:11-0500 SaO2% (BldA) [Mass fraction] 97 % Carlin Furlong DO Work Phone: [facility] 04-26-2023 17:11-0500 Systolic blood pressure 129 mm[Hg] Carlin Furlong DO Work Phone: [facility] 04-26-2023 16:10-0500 Body temperature 98.1 [degF] Carlin Furlong DO Work Phone: [facility] 04-26-2023 16:10-0500 Diastolic blood pressure 70 mm[Hg] Carlin Furlong DO Work Phone: [facility] 04-26-2023 16:10-0500 Heart rate 86 /min Carlin Furlong DO Work Phone: [facility] 04-26-2023 16:10-0500 Respiratory rate 18 /min Carlin Furlong DO Work Phone: [facility] 04-26-2023 16:10-0500 SaO2% (BldA) [Mass fraction] 97 % Carlin Furlong DO Work Phone: [facility] 04-26-2023 16:10-0500 Systolic blood pressure 122 mm[Hg] Carlin Furlong DO Work Phone: [facility] Encounters Encounter Date Encounter Type Care Provider Facility Start: 05-05-2023 ambulatory Carlin villasenor DO [facility] Phone[facility] Comment on above: Excessive cerumen in left ear canal (Primary Dx); Other abnormalities of gait and mobility; Muscle weakness (generalized); Multilevel degenerative disc disease Start: 04-29-2023 Orders Only Carlin villasenor DO Work Phone: [facility] Start: 04-28-2023 ambulatory Carlin villasenor DO Work Phone: [facility] Comment on above: Acute on chronic miya stolic heart failure ([facility]) (Primary Dx); Chronic obstructive pulmonary disease, unspecified COPD type ([facility]); Other abnormalities of gait and mobility; Chronic neck pain; Chronic low back pain without sciatica, unspecified back pain laterality Start: 04-21-2023 ambulatory Carlin villasenor DO Work Phone: [facility] Comment [...] on above: Coronary artery dise ase involving rincon heart without angina pectoris, unspecified vessel or lesion type (Primary Dx); Diabetic polyneuropathy associated with type 2 diabetes mellitus ([facility]); Chronic kidney disease, unspecified CKD stage; Essential hypertension, benign; Primary pulmonary hypertension ([facility]); Chronic obstructive pulmonary disease, unspecified COPD type ([facility]); Patient's noncompliance with other medical treatment and regimen due to unspecified reason; Other seizures ([facility]); Hyperlipidemia, unspecified hyperlipidemia type; Morbid obesity ([facility]); Depressive disorder; Anxiety disorder, unspecified type; Cigarette smoker; Open wound of lesser toe of left foot without damage to nail, subsequent encounter; Acute on chronic diastolic heart failure (CMS-HCC); Other abnormalities of gait and mobility; Muscle weakness (generalized); History of DC (myocardial infarction); History of atrial fibrillation; Other chronic pain Plan of Treatment Date Care Activity Detail Author Start: 10-13-2024 Tobacco Counseling Tobacco Counseling [facility] Start: 12-26-2022 Influenza vaccination Influenza Vaccine [facility] Start: 2011 Administration of varicella zoster vaccine Zoster (Shingles) Vaccine (1 of 2) [facility] Start: 1982 Screening for malignant neoplasm of cervix Pap Smear [facility] Start: 1980 DTaP,Tdap and Td Vaccines (1 - Tdap) DTaP,Tdap and Td Vaccines (1 - Tdap) [facility] Start: 1979 Adult BMI Screening Adult BMI Screening [facility] Start: 1979 Diabetic foot examination Diabetic Foot Exam [facility] Start: 1973 Depression Screening Depression Screening [facility] Start: 1973 Tobacco Screening Tobacco Screening [facility] Start: 1961 Glaucoma screening Diabetic Ophthalmology Exam [facility] Social History Date Type Detail Facility Start: 04-26-2023 Tobacco smoking stat [facility] Smokes tobacco daily [facility] History of tobacco use Cigarette Smoker [facility] Start: 04-26-2023 End: 05-05-2023 Cigarettes smoked current (pack per day) - Reported 0.3 [facility] Start: 04-26-2023 Tobacco use and exposure Smokeless tobacco non-user [facility] Start: 04-26-2023 End: 05-05-2023 Alcohol intake Current drinker of alcohol (finding) [facility] Start: 04-26-2023 End: 05-05-2023 Tobacco use panel [facility] Start: 1960 Sex Assigned At Not on file [facility] Tobacco smoking stat [facility] Tobacco smoking consumption unknown [facility] Clinical Notes 04-14-2023 to 05-05-2023 Carlin Borrego DO - 05/05/2023 10:06 PM Deepti Borrego, DO - 04/29/2023 4:33 PM Deepti Borrego, DO - 04/28/2023 11:59 PM Deepti Borrego, DO - 04/21/2023 11:59 PM EST Note Date & Type Note Facility 05-05-2023 History of Present illness Narrative Patient Name: Linda Sullivan Date of : 1960 Date of Service: 05/05/2023 Facility: [facility] Type of Visit: Skilled Visit Subjective Linda Sullivan is a 63 y.o. female seen today at custodial facility for therapy visit. Laurie is in therapy but will be discharged soon. She wanted to see me because she hasn't had any ear drops. I ordered them last week. Her ear feels plugged. She requires max encouragement to participate. She refuses to ambulate. She is hoping to get into a long-term center in [facility]. Her x-rays showed moderate degenerative disc [...] Carlin Borrego DO documented in this encounter [facility] 04-29-2023 History of Present illness Narrative Addendum Will check x-ray of cervical and lumbar spine. Nurses report she is using oxycodone 10 mg about twice a day. Will decrease oxycodone-acetaminophen 7.5-325 1 Q8hrs prn pain. Attempted to check [facility] but they were having technical difficulties. Unable to retrieve report. documented in this encounter [facility] 04-28-2023 History of Present illness Narrative Patient Name: Linda Sullivan Date of : 1960 Date of Service: 04/28/2023 Facility: [facility] Type of Visit: Skilled Visit Subjective Linda Sullivan is a 63 y.o. female seen today at custodial facility for therapy visit. Laurie is in therapy for increasing strength, endurance and functional mobility. She requires max encouragement for participation. She says she has chronic pain in her back-neck and low back mostly but also thoracic spine. She used to see Dr. Lu at [facility] but was dismissed because she [...] 7 days. Refer to pain management at [facility]. Continue therapy to reach MMI. Continue other medications as before. ELECTRONICALLY SIGNED BY: Carlin Borrego DO documented in this encounter [facility] 04-21-2023 History of Present illness Narrative Patient Name: Linda Sullivan Date of : 1960 Date of Service: 04/21/2023 Facility: [facility] Type of Visit: Skilled Visit Subjective Linda Sullivan is a 63 y.o. female seen today at custodial facility for therapy visit. Staff and patient [...] Carlin Borrego DO documented in this encounter [facility] 04-14-2023 History of Present illness Narrative Patient Name: Linda Sullivan Date of : 1960 Date of Service: 04/26/2023 Facility: [facility] Type of Visit: Admission H&P Subjective Linda Sullivan is a 63 y.o. female seen today at custodial facility for admission. Laurie presents to [facility] from [facility] where she was admitted for hyperglycemia and chest pain rule out DC. She was in another facility last month and was discharged to home but did not have any pen needles so she wasn't giving herself any insulin for a week or so. She then presented to [facility] ED and was admitted. It doesn't look like she had an DC at this last visit. She had an DC in 2015. She has a stent in 2016 and another in 2019 while living in [place]. She has chronic pain and takes oxycodone [...] / Plan 1. Coronary artery disease involving rincon heart without angina pectoris, unspecified vessel or lesion type 2. Diabetic polyneuropathy associated with type 2 diabetes mellitus ([facility]) 3. Chronic kidney disease, unspecified CKD stage 4. Essential hypertension, benign 5. Primary pulmonary hypertension ([facility]) 6. Chronic obstructive pulmonary disease, unspecified COPD type ([facility]) 7. Patient's noncompliance with other medical treatment and regimen due to unspecified reason 8. Other seizures ([facility]) 9. Hyperlipidemia, unspecified hyperlipidemia type 10. Morbid obesity ([facility]) 11. Depressive disorder 12. Anxiety disorder, unspecified type 13. Cigarette smoker 14. Open wound of lesser toe of left foot without damage to nail, subsequent encounter 15. Acute on chronic diastolic heart failure ([facility]) 16. Other abnormalities of gait and mobility 17. Muscle weakness (generalized) 18. History of DC (myocardial infarction) 19. History of atrial fibrillation 20. Other chronic pain Admit to [facility] for therapies. Continue medications from [...] living with a friend in a hotel. oil well services dispatcher will see her. Full code ELECTRONICALLY SIGNED BY: Carlin Borrego DO documented in this encounter [facility] Evaluation note Diagnosis Coronary artery disease involving rincon heart without angina pectoris, unspecified vessel or lesion type- Primary Diabetic polyneuropathy associated with type 2 diabetes mellitus ([facility]) Chronic kidney disease, unspecified CKD stage Essential hypertension, benign Primary pulmonary hypertension ([facility]) Primary pulmonary hypertension Chronic obstructive pulmonary disease, unspecified COPD type ([facility]) Patient's noncompliance with other medical treatment and regimen due to unspecified reason Other seizures ([facility]) Hyperlipidemia, unspecified hyperlipidemia type Morbid obesity ([facility]) Morbid obesity Depressive disorder Depressive disorder, not elsewhere classified Anxiety disorder, unspecified type Cigarette smoker Tobacco use disorder Open wound of lesser toe of left foot without damage to nail, subsequent encounter Acute on chronic diastolic heart failure (CMS-HCC) Acute on chronic diastolic heart failure Other abnormalities of gait and mobility Muscle weakness (generalized) History of DC (myocardial infarction) Old myocardial infarction History of atrial fibrillation Personal history of other diseases of circulatory system Other chronic pain [facility] Diagnosis Diarrhea, unspecified type- Primary Cigarette smoker Tobacco use disorder Open wound of lesser toe of left foot without damage to nail, subsequent encounter Other abnormalities of gait and mobility Muscle weakness (generalized) [facility] Diagnosis Acute on chronic diastolic heart failure ([facility])- Primary Acute on chronic diastolic heart failure Chronic obstructive pulmonary disease, unspecified COPD type ([facility]) Other abnormalities of gait and mobility Chronic neck pain Cervicalgia Chronic low back pain without sciatica, unspecified back pain laterality [facility] Diagnosis Excessive cerumen in left ear canal- Primary Other abnormalities of gait and mobility Muscle weakness (generalized) Multilevel degenerative disc disease [facility] filedocumented in this encounter [facility]ructionsNot on filedocumented in this encounter [facility]ructionsNot on filedocumented in this encounter [facility]ructionsNot on filedocumented in this encounter [facility] Additional Source Comments FOR RECORDS PERTAINING [...] BE BASED ON THE PRIMARY CLINICAL RECORDS. [facility]. provides no warranty or guarantee of the accuracy or completeness of information in this document.
[2023-07-17 14:58] LABS: Vancomycin Trough 18.7 ug/mL (5.0-20.0)
== END 2023-07-17 13:38 | disposition home or self-care (01) ==
LOC: LAB 13:37
PROVIDERS: Visit Provider Family Medicine
DX: Z79.2 Long term (current) use of antibiotics (principal)
CPT/HCPCS: 36415; 80202

== ENCOUNTER 2023-07-28 09:55 | Outpatient (OUT) | payer MEDICAID, SELFPAY | END 2023-07-28 09:56 | disposition home or self-care (01) | LOC: WC 09:55 | PROVIDERS: Visit Provider Podiatrist Foot & Ankle Surgery | DX: E11.621 Type 2 diabetes mellitus with foot ulcer (principal); L97.514 Non-pressure 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 | CPT/HCPCS: 11042; A6213 ==

== ENCOUNTER 2023-08-24 16:27 | Outpatient (OUT) | payer MEDICAID, SELFPAY | END 2023-08-24 16:28 | disposition home or self-care (01) | LOC: WC 16:27 | PROVIDERS: Visit Provider Physician Assistant | DX: E11.621 Type 2 diabetes mellitus with foot ulcer (principal); L97.514 Non-pressure 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; L60.1 Onycholysis; L97.421 Non-pressure chronic ulcer of left heel and midfoot limited to breakdown of skin | CPT/HCPCS: 11043; A6213 ==